=== PATIENT | male | born 1950 | race Caucasian/White ===

== ENCOUNTER 2021-12-07 10:07 | Outpatient (REF) | payer OTHER, SELFPAY | END 2021-12-07 10:08 | disposition home or self-care (01) | LOC: HO.BBR 10:07 | PROVIDERS: Visit Provider Hospitalist | DX: Z13.89 Encounter for screening for other disorder (principal) ==

== ENCOUNTER 2021-12-15 09:48 | Outpatient (REF) | payer OTHER, SELFPAY | END 2021-12-15 09:49 | disposition home or self-care (01) | LOC: HO.BBR 09:48 | PROVIDERS: Visit Provider Hospitalist | DX: Z13.89 Encounter for screening for other disorder (principal) ==

== ENCOUNTER 2021-12-22 11:00 | Outpatient (REF) | payer OTHER, SELFPAY | END 2021-12-22 11:01 | disposition home or self-care (01) | LOC: HO.BBR 11:00 | PROVIDERS: Visit Provider Hospitalist | DX: Z13.89 Encounter for screening for other disorder (principal) ==

== ENCOUNTER 2021-12-29 09:59 | Outpatient (REF) | payer OTHER, SELFPAY | END 2021-12-29 10:00 | disposition home or self-care (01) | LOC: HO.BBR 09:59 | PROVIDERS: Visit Provider Hospitalist | DX: Z13.89 Encounter for screening for other disorder (principal) ==

== ENCOUNTER 2022-01-05 09:56 | Outpatient (REF) | payer OTHER, SELFPAY | END 2022-01-05 09:57 | disposition home or self-care (01) | LOC: HO.BBR 09:56 | PROVIDERS: Visit Provider Hospitalist | DX: Z13.89 Encounter for screening for other disorder (principal) ==

== ENCOUNTER 2022-01-11 09:51 | Outpatient (REF) | payer OTHER, SELFPAY | END 2022-01-11 09:52 | disposition home or self-care (01) | LOC: HO.BBR 09:51 | PROVIDERS: Visit Provider Hospitalist | DX: Z13.89 Encounter for screening for other disorder (principal) ==

== ENCOUNTER 2022-01-19 10:05 | Outpatient (REF) | payer OTHER, SELFPAY | END 2022-01-19 10:06 | disposition home or self-care (01) | LOC: HO.BBR 10:05 | PROVIDERS: Visit Provider Hospitalist | DX: Z13.89 Encounter for screening for other disorder (principal) ==

== ENCOUNTER 2022-01-26 10:56 | Outpatient (REF) | payer OTHER, SELFPAY | END 2022-01-26 10:57 | disposition home or self-care (01) | LOC: HO.BBR 10:56 | PROVIDERS: Visit Provider Hospitalist | DX: Z13.89 Encounter for screening for other disorder (principal) ==

== ENCOUNTER 2022-02-02 10:51 | Outpatient (REF) | payer OTHER, SELFPAY | END 2022-02-02 10:52 | disposition home or self-care (01) | LOC: HO.BBR 10:51 | PROVIDERS: Visit Provider Hospitalist | DX: Z13.89 Encounter for screening for other disorder (principal) ==

== ENCOUNTER 2022-02-09 09:52 | Outpatient (REF) | payer OTHER, SELFPAY | END 2022-02-09 09:53 | disposition home or self-care (01) | LOC: HO.BBR 09:52 | PROVIDERS: Visit Provider Hospitalist | DX: Z13.89 Encounter for screening for other disorder (principal) ==

== ENCOUNTER 2022-02-16 09:52 | Outpatient (REF) | payer OTHER, SELFPAY | END 2022-02-16 09:53 | disposition home or self-care (01) | LOC: HO.BBR 09:52 | PROVIDERS: Visit Provider Hospitalist | DX: Z13.89 Encounter for screening for other disorder (principal) ==

== ENCOUNTER 2022-02-23 09:51 | Outpatient (REF) | payer OTHER, SELFPAY | END 2022-02-23 09:52 | disposition home or self-care (01) | LOC: HO.BBR 09:51 | PROVIDERS: Visit Provider Hospitalist | DX: Z13.89 Encounter for screening for other disorder (principal) ==

== ENCOUNTER 2022-03-02 09:59 | Outpatient (REF) | payer OTHER, SELFPAY | END 2022-03-02 10:00 | disposition home or self-care (01) | LOC: HO.BBR 09:59 | PROVIDERS: Visit Provider Hospitalist | DX: Z13.89 Encounter for screening for other disorder (principal) ==

== ENCOUNTER 2022-03-09 10:59 | Outpatient (REF) | payer OTHER, SELFPAY | END 2022-03-09 11:00 | disposition home or self-care (01) | LOC: HO.BBR 10:59 | PROVIDERS: Visit Provider Hospitalist | DX: Z13.89 Encounter for screening for other disorder (principal) ==

== ENCOUNTER 2022-03-30 09:56 | Outpatient (REF) | payer OTHER, SELFPAY | END 2022-03-30 09:57 | disposition home or self-care (01) | LOC: HO.BBR 09:56 | PROVIDERS: Visit Provider Hospitalist | DX: Z13.89 Encounter for screening for other disorder (principal) ==

== ENCOUNTER 2022-04-20 09:51 | Outpatient (REF) | payer OTHER, SELFPAY | END 2022-04-20 09:52 | disposition home or self-care (01) | LOC: HO.BBR 09:51 | PROVIDERS: Visit Provider Hospitalist | DX: Z13.89 Encounter for screening for other disorder (principal) ==

== ENCOUNTER 2022-05-11 10:52 | Outpatient (REF) | payer OTHER, SELFPAY | END 2022-05-11 10:53 | disposition home or self-care (01) | LOC: HO.BBR 10:52 | PROVIDERS: Visit Provider Hospitalist | DX: Z13.89 Encounter for screening for other disorder (principal) ==

== ENCOUNTER 2022-06-01 10:05 | Outpatient (REF) | payer OTHER, SELFPAY | END 2022-06-01 10:06 | disposition home or self-care (01) | LOC: HO.BBR 10:05 | PROVIDERS: Visit Provider Hospitalist | DX: Z13.89 Encounter for screening for other disorder (principal) ==

== ENCOUNTER 2022-06-22 10:00 | Outpatient (REF) | payer OTHER, SELFPAY | END 2022-06-22 10:01 | disposition home or self-care (01) | LOC: HO.BBR 10:00 | PROVIDERS: Visit Provider Hospitalist | DX: Z13.89 Encounter for screening for other disorder (principal) ==

== ENCOUNTER 2022-07-13 09:57 | Outpatient (REF) | payer OTHER, SELFPAY | END 2022-07-13 09:58 | disposition home or self-care (01) | LOC: HO.BBR 09:57 | PROVIDERS: Visit Provider Hospitalist | DX: Z13.89 Encounter for screening for other disorder (principal) ==

== ENCOUNTER 2022-08-03 09:47 | Outpatient (REF) | payer OTHER, SELFPAY | END 2022-08-03 09:48 | disposition home or self-care (01) | LOC: HO.BBR 09:47 | PROVIDERS: Visit Provider Hospitalist | DX: Z13.89 Encounter for screening for other disorder (principal) ==

== ENCOUNTER 2022-08-24 09:50 | Outpatient (REF) | payer OTHER, SELFPAY | END 2022-08-24 09:51 | disposition home or self-care (01) | LOC: HO.BBR 09:50 | PROVIDERS: Visit Provider Hospitalist | DX: Z13.89 Encounter for screening for other disorder (principal) ==

== ENCOUNTER 2022-09-14 09:51 | Outpatient (REF) | payer OTHER, SELFPAY | END 2022-09-14 09:52 | disposition home or self-care (01) | LOC: HO.BBR 09:51 | PROVIDERS: Visit Provider Hospitalist | DX: Z13.89 Encounter for screening for other disorder (principal) ==

== ENCOUNTER 2022-12-14 09:56 | Outpatient (REF) | payer OTHER, SELFPAY | END 2022-12-14 09:57 | disposition home or self-care (01) | LOC: HO.BBR 09:56 | PROVIDERS: Visit Provider Hospitalist | DX: Z13.89 Encounter for screening for other disorder (principal) ==

== ENCOUNTER 2023-03-15 09:54 | Outpatient (REF) | payer OTHER, MEDICARE, SELFPAY | END 2023-03-15 09:55 | disposition home or self-care (01) | LOC: HO.BBR 09:54 | PROVIDERS: Visit Provider Hospitalist | DX: Z13.89 Encounter for screening for other disorder (principal) ==

== ENCOUNTER 2023-06-14 09:59 | Outpatient (REF) | payer OTHER, MEDICARE, SELFPAY | END 2023-06-14 10:00 | disposition home or self-care (01) | LOC: HO.BBR 09:59 | PROVIDERS: Visit Provider Hospitalist | DX: Z13.89 Encounter for screening for other disorder (principal) ==

== ENCOUNTER 2023-07-05 09:57 | Outpatient (REF) | payer OTHER, SELFPAY | END 2023-07-05 09:58 | disposition home or self-care (01) | LOC: HO.BBR 09:57 | PROVIDERS: Visit Provider Hospitalist | DX: Z13.89 Encounter for screening for other disorder (principal) ==

== ENCOUNTER 2023-07-26 09:59 | Outpatient (REF) | payer OTHER, SELFPAY | END 2023-07-26 10:00 | disposition home or self-care (01) | LOC: HO.BBR 09:59 | PROVIDERS: Visit Provider Hospitalist | DX: Z13.89 Encounter for screening for other disorder (principal) ==

== ENCOUNTER 2023-08-16 09:53 | Outpatient (REF) | payer OTHER, SELFPAY | END 2023-08-16 09:54 | disposition home or self-care (01) | LOC: HO.BBR 09:53 | PROVIDERS: Visit Provider Hospitalist | DX: Z13.89 Encounter for screening for other disorder (principal) ==

== ENCOUNTER 2023-09-06 10:03 | Outpatient (REF) | payer OTHER, SELFPAY | END 2023-09-06 10:04 | disposition home or self-care (01) | LOC: HO.BBR 10:03 | PROVIDERS: Visit Provider Hospitalist | DX: Z13.89 Encounter for screening for other disorder (principal) ==

== ENCOUNTER 2024-02-21 09:50 | Outpatient (REF) | payer OTHER, SELFPAY ==
--- OUTSIDE RECORDS SUMMARY | 2024-02-21 09:53 | XMS_ITS ---
Author Name [facility] Organization Unknown History of Medication Use Medication Directions Dispensed Refills Start Date End Date Stat us atorvastatin (LIPITOR) 10 MG tablet Take 1 tablet (10 mg total) by mouth. 02/14/2024 02/18/9999 active tamsulosin (FLOMAX) 0.4 MG capsule Take by mouth. 02/14/2024 02/18/9999 active losartan (COZAAR) 100 MG tablet Take 1 tablet (100 mg total) by mouth. 02/14/2024 02/18/9999 active levothyroxine (SYNTHROID, LEVOTHROID) 125 MCG tablet TAKE 1 TABLET BY MOUTH SUNDAY THROUGH SUNDAY, THEN TAKE 2 TABLETS EVERY Sunday02/14/2024 02/18/9999 active Problems Problem Status Onset Date Problem Type Date of Resoluti on Source Elevated PSA active [facility] Incomplete bladder emptying active EncounterDiagnosisAct [facility] Family history of prostate cancer active EncounterDiagnosisAct [facility] CT Abnormal MRI, pelvis active [facility]DiagnosisAct [facility]
== END 2024-02-21 09:51 | disposition home or self-care (01) ==
LOC: HO.BBR 09:50
PROVIDERS: Visit Provider Hospitalist
DX: Z13.89 Encounter for screening for other disorder (principal)

== ENCOUNTER 2024-05-30 10:49 | Outpatient (REF) | payer OTHER, SELFPAY ==
--- OUTSIDE RECORDS SUMMARY | 2024-05-30 11:43 | XMS_ITS | Clinical Summary ---
Author Organization [facility] Address [address] [place] [address] Care Team Providers Care Skein Inspector Name Role Phone Claudio Lea MD Primary Care Provider +1- [phone] Allergies Active Allergy Reactions Criticality Noted Date Comments Lisinopril 09/02/2019 Medications Medication Sig Dispensed Refills Start Date End Date Status losartan (COZAAR) 100 MG tablet Take 100 mg by mouth daily. 0 Active levothyroxine (SYNTHROID, LEVOXYL) tablet 125 mcg Take 125 mcg by mouth every morning on an empty stomach. 0 Active tamsulosin (FLOMAX) 0.4 MG CAPS Take 0.4 mg by mouth daily. 0 Active Active Problems No known active problems Family History Medical History Relation Name Comments Cancer Brother Cancer Father Relation Name Status Comments Brother Father Social History Tobacco Use Types Packs/Day Years Used Date Smoking Tobacco: Never Smokeless Tobacco: Never Alcohol Use Standard Drinks/Week Comments Yes 0 (1 standard drink = 0.6 oz pur e alcohol) Sex and Gender Information Value Date Recorded Sex Assigned at Not on file Gender Identity Not on file Sexual Orientation Not on file Last Filed Vital Signs Vital Sign Reading Time Taken Comments Blood Pressure 137/73 09/03/2019 10:07 AM EDT Pulse 71 09/03/2019 10:07 AM EDT Temperature 36.2 ??C (97.1 ??F) 09/03/2019 10:07 AM E DT Respiratory Rate - - Oxygen Saturation 99% 09/03/2019 10:07 AM EDT Inhaled Oxygen Concentration - - Weight 91.8 kg (202 lb 6.4 oz) 09/03/2019 10:07 AM EDT Height 182.9 cm (6') 09/03/2019 10:07 AM EDT Body Mass Index 27.45 09/03/2019 10:07 AM EDT Plan of Treatment Health Maintenance Due Date Last Done Comments Hepatitis C Screening 1950 COVID-19 Vaccine (#1) 06/15/1950 Depression Screening 1961 Preventative Health Evaluation 12/16/1967 DTap / Tdap / Td (1 - Tdap) 1968 Colon Cancer Screening (Colonoscopy) 1994 Shingrix-Zoster Vaccine (1 o f 2) 12/16/1999 Fall Risk Assessment 2014 Influenza Vaccine (#1) 2023 11/19/2018 RSV Adult > 60+ Yrs or (1 - 1-dose 75+ series) 2024 Pneumococcal Vaccine Completed 12/22/2015, 12/23/2014 Hepatitis B Vaccines Aged Out No long er eligible based on patient's age to complete this topic RSV Ped < 20 months Aged Out No longe r eligible based on patient's age to complete this topic Insurance Payer Benefit Plan / Group Subscriber ID Effective Dates Phone Address [facility] [id number] [address] [place] [address] [facility] Care Teams Skein Inspector Relationship Specialty Start Date End Date Claudio Lea MD [address] [place] [phone] PCP - General Internal Medicine 09/03/19
--- OUTSIDE RECORDS SUMMARY | 2024-05-30 11:43 | XMS_ITS | Encounter Summary ---
Author Organization [facility] Address [address] [place] [address] Care Team Providers Care Secondary School Teacher Name Role Phone Allyn Anderson MD Primary Care Provider +1- [phone] Encounter Details Date Type Department Care Team (Late st Contact Info) Description 11/23/2023 Scanned Document [facility] Urologic Surgery [address] [address] Allyn Anderson MD [address] [place] [address] Social History Tobacco Use Types Packs/Day Years Used Date Smoking Tobacco: Never Assessed Sex and Gender Information Value Date Recorded Sex Assigned at Male 02/10/2024 9:52 AM EST Gender Identity Male 02/10/2024 9:52 AM EST Sexual Orientation Heterosexual (straight) 02/09 9:52 AM EST documented as of this encounter Plan of Treatment Not on file documented as of this encounter Visit Diagnoses Not on filedocumented in this encounter Care Teams Secondary School Teacher Relationship Specialty Start Date End Date Allyn Anderson MD [address] [place] [address] PCP - General Internal Medicine 11/21/23 documented as of this encounter
--- OUTSIDE RECORDS SUMMARY | 2024-05-30 11:43 | XMS_ITS | Clinical Summary ---
Author Organization [facility] Address [address] [place] [address] Care Team Providers Care Investigation Division Captain Name Role Phone Allyn Anderson MD Primary Care Provider +1- [phone] Allergies Active Allergy Reactions Criticality Noted Date Comments Lisinopril Cough Low 06/19/2018 cough Medications Medication Sig Dispensed Refills Start Date End Date Status atorvastatin (LIPITOR) 10 MG tablet Take 1 tablet (10 mg total) by mouth. Active levothyroxine (SYNTHROID, LEVOTHROID) 125 MCG tablet TAKE 1 TABLET BY MOUTH SUNDAY THROUGH SUNDAY, THEN TAKE 2 TABLETS EVERY SUNDAY Active losartan (COZAAR) 100 MG tablet Take 1 tablet (100 mg total) by mouth. 02/19/2014 Active tamsulosin (FLOMAX) 0.4 MG capsule Take by mouth. Active Active Problems No known active problems Family History Medical History Relation Name Comments Cancer, Prostate Brother Prostate Problems Brother Cancer, Prostate Cousin Prostate Problems Cousin Cancer, Prostate Father Prostate Problems Father Cancer, Prostate Maternal Grandfather Prostate Problems Maternal Grandfather Cancer, Prostate Paternal Grandfather Prostate Problems Paternal Grandfather Relation Name Status Comments Brother Alive Cousin Alive Father Maternal Grandfather Paternal Grandfather Social History Tobacco Use Types Packs/Day Years Used Date Smoking Tobacco: Never Smokeless Tobacco: Never Tobacco Cessation:Counseling Given: Not Answered Alcohol Use Standard Drinks/Week Comments Not Currently 0 (1 standard drink = 0.6 oz pur e alcohol) Sex and Gender Information Value Date Recorded Sex Assigned at Male 02/10/2024 9:52 AM EST Gender Identity Male 02/10/2024 9:52 AM EST Sexual Orientation Heterosexual (straight) 02/09 9:52 AM EST Last Filed Vital Signs Vital Sign Reading Time Taken Comments Blood Pressure - - Pulse - - Temperature - - Respiratory Rate - - Oxygen Saturation - - Inhaled Oxygen Concentration - - Weight 93 kg (205 lb) 02/12/2024 9:33 AM EST PER PT Height 185.4 cm (6' 1 ) 02/12/2024 9:33 AM EST P ER PT Body Mass Index 27.05 02/12/2024 9:33 AM EST Plan of Treatment Health Maintenance Due Date Last Done Comments Hepatitis C Virus Screening 1950 DTaP/Tdap/Td Vaccines (1 - Tdap) 1968 Colonoscopy 1994 Pneumococcal Vaccines 50+ (1 of 1 - PCV) 12/16/1999 Zoster (Shingles) Vaccine (1 of 2) 12/16/1999 COVID-19 Vaccine ( - season) 2023 12/18/2022, 01/10/2021, 06/10/2020, Additional history exists RSV Vaccine 60 years and older and Patients (1 - 1-dose 75+ series) 2024 Influenza Vaccine Completed 10/26/2023, , 11/22/2021, Additional history exists Hepatitis B Vaccines Aged Out No long er eligible based on patient's age to complete this topic Insurance Payer Benefit Plan / Group Subscriber ID Effective Dates Phone Address [facility] [id number] [address] Care Teams Investigation Division Captain Relationship Specialty Start Date End Date Allyn Anderson MD [address] [place] [id number] PCP - General Internal Medicine 11/21/23
--- OUTSIDE RECORDS SUMMARY | 2024-05-30 11:43 | XMS_ITS | Encounter Summary ---
Author Organization [facility] Address [address] [place] [address] Care Team Providers Care Attorney Name Role Phone Allyn Anderson MD Primary Care Provider +1 [phone] Encounter Details Date Type Department Care Team (Late st Contact Info) Description 05/28/2024 2:16 PM EDT Hospital Encounter [facility] Radiation Oncology [address] [address] Arrived Social History Tobacco Use Types Packs/Day Years Used Date Smoking Tobacco: Never Smokeless Tobacco: Never Alcohol Use Standard Drinks/Week Comments Not Currently 0 (1 standard drink = 0.6 oz pur e alcohol) Sex and Gender Information Value Date Recorded Sex Assigned at Not on file Legal Sex Male 9:32 AM EDT Gender Identity Not on file Sexual Orientation Not on file Occupation Industry Job Start Date Job End Date Professor Not on file Not on file Not on file documented as of this encounter Plan of Treatment Not on file documented as of this encounter Visit Diagnoses Not on filedocumented in this encounter Care Teams Attorney Relationship Specialty Start Date End Date Allyn Anderson MD [address] [place] [address] PCP - General Internal Medicine 05/01/24 documented as of this encounter
--- OUTSIDE RECORDS SUMMARY | 2024-05-30 11:43 | XMS_ITS | Encounter Summary ---
Author Organization [facility] Address [address] [place] [address] Care Team Providers Care Hydrogen Braze Furnace Operator Name Role Phone Allyn Anderson MD Primary Care Provider +1- [phone] Encounter Details Date Type Department Care Team (Late st Contact Info) Description 11/23/2023 Scanned Document [facility] Urologic Surgery [address] [address] Allyn Anderson MD [address] [place] [address] Social History Tobacco Use Types Packs/Day Years [...] on filedocumented in this encounter Care Teams Hydrogen Braze Furnace Operator Relationship Specialty Start Date End Date Allyn Anderson MD [address] [place] [address] PCP - General Internal Medicine 11/21/23 documented as of this encounter
--- OUTSIDE RECORDS SUMMARY | 2024-05-30 11:44 | XMS_ITS | Encounter Summary ---
Author Organization [facility] Address [address] [place] [address] Care Team Providers Care Boat Garnisher Name Role Phone Allyn Anderson MD Primary Care Provider + [phone] Encounter Details Date Type Department Care Team (Latest Contact Info) Description 05/09/2024 Lab Requisition [facility] - Main Lab [address] [place] [address] Herve Desir MD [address] [phone] Other abnormal findings on microbiological examination of urine Social History Tobacco Use Types Packs/Day Years Used Date Smoking Tobacco: Never Smokeless Tobacco: Never Alcohol Use Standard Drinks/Week Comments Yes 0 (1 standard drink = 0.6 oz pur e alcohol) Sex and Gender Information Value Date Recorded Sex Assigned at Not on file Legal Sex Male 9:32 AM EDT Gender Identity Not on file Sexual Orientation Not on file documented as of this encounter Plan of Treatment Not on file documented as of this encounter Procedures Procedure Name Priority Date/Time Associated Diagnosis Comments CULTURE URINE Routine 05/09/2024 11:25 AM EDT Other abnormal findings on microbiological examination of urine documented in this encounter Results * Culture urine (05/09/2024 11:25 AM EDT) Culture, Urine <10,000 CFU/mL gram negative bacilli, insignificant count, no further workup 05/10/2024 2:53 PM EDT [facility] H[facility] LAB Urine Urine specimen obtained by clean catch procedure / Unknown 05/09/2024 11:25 AM EDT 05/09/2024 5:52 PM EDT us Herve Desir MD LAB MICROBIOLOGY - GENERAL ORDER CEE Final Result [facility] [address] [place] [address], documented in this encounter Visit Diagnoses Diagnosis Other abnormal findings on microbiological examination of urine documented in this encounter Care Teams Boat Garnisher Relationship Specialty Start Date End Date Allyn Anderson MD [address] [place] [address] PCP - General Internal Medicine 05/01/24 documented as of this encounter
--- OUTSIDE RECORDS SUMMARY | 2024-05-30 11:44 | XMS_ITS | Encounter Summary ---
Author Organization [facility] Address [address] [place] [address] Care Team Providers Care Stock Roller Name Role Phone Allyn Anderson MD Primary Care Provider + [phone] Reason for Referral * Consultation (Routine) - Authorized Specialty Diagnoses / Procedures Referred By Contac t Referred To Contact Radiation Oncology Diagnoses Prostate cancer (CMS/HCC V24, CMS/HCC V28) Herve Desir MD [address] [address] Phone: tel: fax: [facility] Radiation Oncology [address] [place] [phone] Phone: tel: fax: Referral ID Status Reason Start Date Expiration Date Visits Requested Visits Authorized [id number] Authorized Specialty Services Required 05/01/2024 05/01/2025 1 1 Reason for Visit * Reason Comments Consult * Consultation (Routine) - Authorized Specialty Diagnoses / Procedures Referred By Contac t Referred To Contact Radiation Oncology Diagnoses Prostate cancer (CMS/HCC V24, CMS/HCC V28) Herve Desir MD [address] [address] Phone: tel: fax: [facility] Radiation Oncology [address] [place] [phone] Phone: tel: fax: Referral ID Status Reason Start Date Expiration Date Visits Requested Visits Authorized [id number] Authorized Specialty Services Required 05/01/2024 05/01/2025 1 1 Encounter Details Date Type Department Care Team (Latest Contact Info) Description 05/28/2024 2:17 PM EDT Hospital Encounter [facility] Radiation Oncology [address] [phone] Madisyn Ramirez MD [address] [place] [address] Prostate cancer (CMS/HCC V24, CMS/HCC V28) Social History Tobacco Use Types Packs/Day Years [...] on file documented as of this encounter Last Filed Vital Signs Vital Sign Reading Time Taken Comments Blood Pressure 178/82 05/28/2024 2:23 PM EDT manual blood pressure Pulse 62 05/28/2024 2:23 PM EDT Temperature 36.6 ??C (97.9 ??F) 05/28/2024 2 :23 PM EDT Respiratory Rate 16 05/28/2024 2:23 PM EDT Oxygen Saturation 97% 05/28/2024 2:2 3 PM EDT Inhaled Oxygen Concentration - - Weight 98 kg (216 lb) 05/28/2024 2:23 PM EDT Height 185.4 cm (6' 1 ) 05/28/2024 2:23 PM EDT Body Mass Index 28.5 05/28/2024 2:23 PM EDT documented in this encounter Plan of Treatment Scheduled Referrals Name Type Priority Associated Diagnoses Order Schedule Ambulatory referral to Radiation Oncology Outpatient Referral Routine Prostate cancer ([facility] V24, [facility] V28) Once for 1 Occurrences starting 05/28/2024 until 05/28/2024 documented as of this encounter Visit Diagnoses Diagnosis Prostate cancer (CMS/HCC V24, [facility] V28) Malignant neoplasm of prostate documented in this encounter Historical Medications * This list may reflect changes made after this encounter. atorvastatin (LIPITOR) 10 mg tablet Take 1 tablet (10 mg total) by mouth 1 (one) time each day. cholecalciferol (VITAMIN D-3) 1,250 mcg (50,000 unit) capsule Take 1 capsule (50,000 Units total) by mouth. 07/05/2023 levothyroxine (SYNTHROID, LEVOTHROID) 125 mcg tablet TAKE 1 TABLET BY MOUTH SUNDAY THROUGH SUNDAY, THEN TAKE 2 TABLETS EVERY SUNDAY losartan (COZAAR) 100 mg tablet Take 1 tablet (100 mg total) by mouth 1 (one) time each day. tamsulosin (FLOMAX) 0.4 mg 24 hr capsule Take 1 capsule (0.4 mg total) by mouth 1 (one) time each day. added in this encounter Care Teams Stock Roller Relationship Specialty Start Date End Date Allyn Anderson MD [address] [place] [phone] PCP - General Internal Medicine 05/01/24 documented as of this encounter
--- OUTSIDE RECORDS SUMMARY | 2024-05-30 11:44 | XMS_ITS | Encounter Summary ---
Author Organization [facility] Address [address] [place] [address] Care Team Providers Care High School Library Media Specialist Name Role Phone Allyn Anderson MD Primary Care Provider + [phone] Encounter Details Date Type Department Care Team (Late st Contact Info) Description 03/03/2024 Lab Requisition [facility] - Main Lab [address] [facility] [place] [address] Eryn Watkins MD [address] [address] Elevated prostate specific antigen (PSA) Social History Tobacco Use Types Packs/Day Years [...] Procedure Name Priority Date/Time Associated Diagnosis Comments FLUOROQUINOLONE RESISTANT GNR IDENTIFICATION AND SUSCEPTIBILITY Routine 03/03/2024 12:00 AM EST Elevated prostate specific antigen (PSA) CULTURE FLUOROQUINOLONE RESISTANT ORGANISM Routine 03/03/2024 12:00 AM EST Elevated prostate specific antigen (PSA) documented in this encounter Results * Fluoroquinolone resistant GNR identification and susceptibility (03/03/2024 12:00 AM EST) Result 1 No Fluoroquinolone Resistant GNR Detected. 03/07/2024 10:05 AM EST [facility] Swab Rectum structure / Unknown 03/03/2024 03/03/2024 10:26 AM EST Narrative [facility] - 03/07/2024 10:05 AM EST Performed at: ??01 - [facility] [address] ??[id number] Crane Man: Sun Bliss MD, Phone: ??[phone] Eryn Watkins MD LAB MICROBIOLOGY - GENER AL ORDERABLES Final Result [facility] * Culture fluoroquinolone resistant organism (03/03/2024 12:00 AM EST) Fluoroquinolone Resist GNR Cul Final report 03/07/2024 10:05 AM EST [facility] Swab Rectum structure / Unknown 03/03/2024 03/03/2024 10:26 AM EST Narrative [facility] - 03/07/2024 10:05 AM EST Performed at: ??01 - [facility] [address] ??[id number] Crane Man: Sun Bliss MD, Phone: ??[phone] Eryn Watkins MD LAB MICROBIOLOGY - GENER AL ORDERABLES Final Result [facility] documented in this encounter Visit Diagnoses Diagnosis Elevated prostate specific antigen (PSA) documented in this encounter Care Teams High School Library Media Specialist Relationship Specialty Start Date End Date Allyn Anderson MD [address] [place] [phone] PCP - General Internal Medicine 05/01/24 documented as of this encounter
--- OUTSIDE RECORDS SUMMARY | 2024-05-30 11:44 | XMS_ITS | Encounter Summary ---
Author Organization [facility] Address [address] [place] [address] Care Team Providers Care Valet Parking Attendant Name Role Phone Allyn Anderson MD Primary Care Provider +1- [phone] Encounter Details Date Type Department Care Team (Late st Contact Info) Description 11/23/2023 Scanned Document [facility] Urologic Surgery [address] [address] Allyn Anderson MD [address] [place] [address] Social History Tobacco Use Types Packs/Day Years [...] on filedocumented in this encounter Care Teams Valet Parking Attendant Relationship Specialty Start Date End Date Allyn Anderson MD [address] [place] [address] PCP - General Internal Medicine 11/21/23 documented as of this encounter
--- OUTSIDE RECORDS SUMMARY | 2024-05-30 11:44 | XMS_ITS | Clinical Summary ---
Author Organization Patient Business Ser [facility] Address [address] [place] [address] Care Team Providers Care Wafer Abrading Machine Tender Name Role Phone Allyn Anderson MD Primary Care Provider [phone] [phone] Allergies Active Allergy Reactions Criticality Noted Date Comments Lisinopril Cough Low 06/19/2018 cough Medications tamsulosin (FLOMAX) 0.4 mg 24 hr capsule Take 1 capsule (0.4 mg total) by mouth 1 (one) time each day. Active losartan (COZAAR) 100 mg tablet Take 1 tablet (100 mg total) by mouth 1 (one) time each day. Active levothyroxine (SYNTHROID, LEVOTHROID) 125 mcg tablet TAKE 1 TABLET BY MOUTH SUNDAY THROUGH SUNDAY, THEN TAKE 2 TABLETS EVERY SUNDAY Active cholecalciferol (VITAMIN D-3) 1,250 mcg (50,000 unit) capsule Take 1 capsule (50,000 Units total) by mouth. 07/05/2023 Active atorvastatin (LIPITOR) 10 mg tablet Take 1 tablet (10 mg total) by mouth 1 (one) time each day. Active Active Problems Problem Noted Date Diagnosed Date Prostate cancer (CMS/HCC V24, CMS/HCC V28) 05/28 Cancer Staging:Clinical:Stage IIC(cT1c, cN0, cM0, PSA: 19.9, Grade Group: 4) - Signed by Madisyn Ramirez MD on 05/28/2024 Dysthymia 05/23/2024 Elevated ferritin level 05/23/2024 Hemochromatosis 05/23/2024 Hypercholesterolemia 05/23/2024 Low HDL (under 40) 05/23/2024 Macrocytosis without anemia 05/23/2024 Vaccine counseling 05/23/2024 Vitamin D deficiency 05/23/2024 Elevated PSA 12/20/2020 Overview (05/23/2024): 4.9 11/2020. Referred to urology. Overweight (BMI 25.0-29.9) 08/27/2019 Polycythemia 08/03/2019 Overview (05/23/2024): 07/2019, negative JAK2 testing, p vera highly unlikely. No further workup per heme note 08/2019 BPH with elevated PSA 06/19/2018 Hypertension 06/19/2018 Hypothyroidism 06/19/2018 Overview (05/23/2024): Hashimotos thyroiditis Osteoarthritis 06/19/2018 Overview (05/23/2024): Neck, low back, right knee, left foot Encounters Date Type Department Care Team Description 05/28/2024 2:17 PM EDT Hospital Encounter [facility] Radiation Oncology [address] [address] Madisyn Ramirez MD Prostate cancer (CMS/HCC V24, CMS/HCC V28) 05/28/2024 2:16 PM EDT Hospital Encounter [facility] Radiation Oncology [address] [place] [phone] Arrived 05/22/2024 Telephone [facility] Radiation Oncology [address] [address] Carmita Andrew MA 05/14/2024 11:10 AM EDT - 05/14/2024 11:59 PM EDT Hospital Encounter [facility] PET Scan [address] [place] [address] Malignant neoplasm of prostate (CMS/HCC V24, CMS/HCC V28) Discharge Disposition: Home or Self Care 05/09/2024 Lab Requisition [facility] - Main Lab [address] [facility] [place] [address] Herve Desir MD Other abnormal findings on microbiological examination of urine 05/01/2024 Telephone [facility] Radiation Oncology [address] [facility] 2nd [place] [address] [place] 03/03/2024 Lab Requisition [facility] - Main Lab [address] [facility] [place] [address] Eryn Watkins MD Elevated prostate specific antigen (PSA) from Last 3 Months Surgical History Surgery Date Site/Laterality Comments KNEE SURGERY Right PROCEDURE: HISTORICAL KNEE SURGERY; COMMENT: meniscal surgery 2014- didnt help OTHER SURGICAL HISTORY PROCEDURE: ---- OTHER ----; COMMENT: skin cyst 2016 CYST REMOVAL neck Medical History Medical History Date Comments Hypertension Raquel's disease Hypothyroidism Hemochromatosis Arthritis Family History Medical History Relation Name Comments Prostate cancer Brother low marco antonio score Asthma Daughter 1 No Known Problems Daughter 2 Prostate cancer Father dx age -75yo , thyroid disease Prostate cancer Maternal Grandfather Arthritis Mother glioblastoma Mother Prostate cancer Paternal Grandfather No Known Problems Son 1 No Known Problems Son 2 Relation Name Status Comments Brother Alive Daughter 1 Alive Daughter 2 Alive Father Maternal Grandfather Mother Paternal Grandfather Son 1 Alive Son 2 Alive Social History Tobacco Use Types Packs/Day Years [...] file Not on file Not on file Obstetrics History Last Filed Vital Signs Vital Sign Reading [...] Mass Index 28.5 05/28/2024 2:23 PM EDT Plan of Treatment Health Maintenance Due Date Last Done Comments Zoster Vaccines (1 of 2) 1968 RSV Immunization Adult Patients (1 - Risk 60-74 years 1-dose series) 2009 Cholesterol Screening (Lipid Panel) 09/18/2019 Colorectal Cancer Screening: Stool Based Tests (FOBT/FIT) 09/18/2019 Depression Screening 09/18/2019 Falls Risk Assessment 09/18/2019 Hepatitis C Screening 09/18/2019 Social Influencers of Health Screening 09/18/2019 Hypertension/CHF/CAD Annual BMP Blood Test 01/29/2022 DTaP,Tdap,and Td Vaccines (2 - Td or Tdap) 12/07/2030 12/07/2020 Pneumococcal Vaccine: 50+ Years Completed 06/26/2022, 12/22/2015, 12/23/2014 COVID-19 Vaccine Completed 10/26/2023, , 06/26/2022, Additional history exists Influenza Vaccine Completed 10/26/2023, , 11/22/2021, Additional history exists HIB Vaccines Aged Out No longer eligi ble based on patient's age to complete this topic HPV Vaccines Aged Out No longer eligi ble based on patient's age to complete this topic Hepatitis A Vaccines Aged Out No long er eligible based on patient's age to complete this topic Hepatitis B Vaccines Aged Out No long er eligible based on patient's age to complete this topic IPV Vaccines Aged Out No longer eligi ble based on patient's age to complete this topic MMR Vaccines Aged Out No longer eligi ble based on patient's age to complete this topic Meningococcal ACWY Vaccine Aged Out N o longer eligible based on patient's age to complete this topic Meningococcal B Vaccine Aged Out No l onger eligible based on patient's age to complete this topic RSV Immunization Patients Under 20 months Aged Out No longer eligible based on patient's age to complete this topic Varicella Vaccines Aged Out No longer eligible based on patient's age to complete this topic Procedures Procedure Name Priority Date/Time Associated Diagnosis Comments PET CT SKULL TO MID THIGH INITIAL Routine 05/14/2024 1:15 PM EDT Malignant neoplasm of prostate ([facility] V24, [facility] V28) CULTURE URINE Routine 05/09/2024 11:25 AM EDT Other abnormal findings on microbiological examination of urine FLUOROQUINOLONE RESISTANT GNR IDENTIFICATION AND SUSCEPTIBILITY Routine 03/03/2024 12:00 AM EST Elevated prostate specific antigen (PSA) CULTURE FLUOROQUINOLONE RESISTANT ORGANISM Routine 03/03/2024 12:00 AM EST Elevated prostate specific antigen (PSA) from Last 3 Months Results * PET CT Skull to Mid Thigh Initial (05/14/2024 1:15 PM EDT) Anatomical Region Laterality Modality Body Radiographic Sudha ging 05/15/2024 8:19 AM EDT Impressions 05/15/2024 12:43 PM EDT 1. ??Activity within the prostate gland in keeping with prostate carcinoma 2. ??No PSMA findings to suggest metastatic disease -------- FINAL REPORT -------- Dictated By: Yesenia Pérez Dictated Date: 05/15/2024 08:19 ET Assigned Physician: Yesenia Pérez Reviewed and Electronically Signed By: Yesenia Pérez Signed Date: 05/15/2024 12:43 ET Workstation ID: [id number] Transcribed By: Self Edit Transcribed Date: 05/15/2024 08:47 ET Narrative 05/15/2024 12:43 PM EDT HISTORY: Prostate carcinoma, initial treatment. PRIOR IMAGING STUDIES: Outside MRI of the prostate October [address] of the abdomen and pelvis. ??Staging. RADIOPHARMACEUTICAL: 9.1 mCi F-18 piflufolastat IV INJECTION SITE: Left antecubital INJECTION TIME TO SCAN TIME: 72 min PROCEDURE: Routine body PET-CT imaging performed from the head to the upper thighs and reconstructed in axial, coronal, sagittal planes at the computer workstation with fused data from both the PET imaging study and attenuation correction CT study. Please note, CT imaging utilized strictly for attenuation correction and anatomic localization: CT not designed to produce and cannot replace vqduh-ao-cdo-art true diagnostic CT examination with specific protocols. ??Standardized uptake values (SUV) normalized to patient body weight and indicate the highest active concentration (SUV max) in a given disease site. DLP: ??738 mGy-cm IMAGING FINDINGS: Reference Values SUV Max: Parotid: 24.9 Blood Pool: ??1.9 Liver: ??8.0 Expected pattern of physiological activity noted. HEAD AND NECK: No abnormal activity. THORAX: Nonspecific bihilar activity SUV max 2.5 on the left and 2.6 on the right. ABDOMEN/PELVIS: Enlarged prostate gland SUV max 6.1. MUSCULOSKELETAL: No abnormal activity. Procedure Note Yesenia Pérez MD - 05/15/2024 HISTORY: Prostate carcinoma, initial treatment. PRIOR IMAGING STUDIES: Outside MRI of the prostate October 2023 [address] CTof the abdomen and pelvis. Staging. RADIOPHARMACEUTICAL: 9.1 mCi F-18 piflufolastat IV INJECTION SITE: Left antecubital INJECTION TIME TO SCAN TIME: 72 min PROCEDURE: Routine body PET-CT imaging performed from the head to the upper thighsand reconstructed in axial, coronal, sagittal planes at the computerworkstation with fused data from both the PET imaging study andattenuation correction CT study. Please note, CT imaging utilized strictlyfor attenuation correction and anatomic localization: CT not designed toproduce and cannot replace kdlew-hp-kve-art true diagnostic CT examinationwith specific protocols. Standardized uptake values (SUV) normalized topatient body weight and indicate the highest active concentration (SUVmax) in a given disease site. DLP: 738 mGy-cm IMAGING FINDINGS: Reference Values SUV Max: Parotid: 24.9 Blood Pool: 1.9 Liver: 8.0 Expected pattern of physiological activity noted. HEAD AND NECK: No abnormal activity. THORAX: Nonspecific bihilar activity SUV max 2.5 on the left and 2.6 onthe right. ABDOMEN/PELVIS: Enlarged prostate gland SUV max 6.1. MUSCULOSKELETAL: No abnormal activity. IMPRESSION: 1. Activity within the prostate gland in keeping with prostatecarcinoma 2. No PSMA findings to suggest metastatic disease -------- FINAL REPORT -------- Dictated By: Yesenia Pérez Dictated Date: 05/15/2024 08:19 ET Assigned Physician: Yesenia Pérez Reviewed and Electronically Signed By: Yesenia Pérez Signed Date: 05/15/2024 12:43 ET Workstation ID: [id number] Transcribed By: Self Edit Transcribed Date: 05/15/2024 08:47 ET Herve Desir MD IMG NM PROCEDURES Final Result * Culture urine (05/09/2024 11:25 AM EDT) Culture, Urine <10,000 CFU/mL gram negative bacilli, insignificant count, no further workup 05/10/2024 2:53 PM EDT [facility] Urine Urine specimen obtained by clean catch procedure / Unknown 05/09/2024 11:25 AM EDT 05/09/2024 5:52 PM EDT Herve Desir MD LAB MICROBIOLOGY - GENERAL ORDER CEE Final Result [facility] [address] [place] [address], [place] [phone] * Fluoroquinolone resistant GNR identification and susceptibility (03/03/2024 12:00 AM EST) Result 1 No Fluoroquinolone Resistant GNR Detected. 03/07/2024 10:05 AM EST [facility] Swab Rectum structure / Unknown 03/03/2024 03/03/2024 10:26 AM EST Narrative [facility] - 03/07/2024 10:05 AM EST Performed at: ??01 - [facility] [address] ??[id number] Dry Cans Operator: Sun Bliss MD, Phone: ??[phone] Eryn Watkins MD LAB MICROBIOLOGY - GENER AL ORDERABLES Final Result [facility] * Culture fluoroquinolone resistant organism (03/03/2024 12:00 AM EST) Fluoroquinolone Resist GNR Cul Final report 03/07/2024 10:05 AM EST [facility] Swab Rectum structure / Unknown 03/03/2024 03/03/2024 10:26 AM EST Narrative [facility] - 03/07/2024 10:05 AM EST Performed at: ??01 - [facility] [address] ??[id number] Dry Cans Operator: Sun Bliss MD, Phone: ??[phone] us Eryn Watkins MD LAB MICROBIOLOGY - GENER AL ORDERABLES Final Result [facility] from Last 3 Months Insurance MEDICARE [facility] Care Teams Wafer Abrading Machine Tender Relationship Specialty Start Date End Date Allyn Anderson MD [address] [facility] [place] [address] PCP - General Internal Medicine 05/01/24
--- OUTSIDE RECORDS SUMMARY | 2024-05-30 11:44 | XMS_ITS | Encounter Summary ---
Author Organization [facility] Address [address] [place] [address] Care Team Providers Care Paint Grinder Stone Mill Name Role Phone Allyn Anderson MD Primary Care Provider [phone]- [phone] Encounter Details Date Type Department Care Team ([facility] st Contact Info) Description 02/14/2024 Scanned Document [facility] UROLOGY SCAN Urology, Scan Social History Tobacco Use Types Packs/Day Years [...] on filedocumented in this encounter Care Teams Paint Grinder Stone Mill Relationship Specialty Start Date End Date Allyn Anderson MD [address] [place] [address] PCP - General Internal Medicine 11/21/23 documented as of this encounter
== END 2024-05-30 10:50 | disposition home or self-care (01) ==
LOC: HO.BBR 10:49
PROVIDERS: Visit Provider Hospitalist
DX: Z13.89 Encounter for screening for other disorder (principal)

== ENCOUNTER 2024-08-28 09:55 | Outpatient (REF) | payer OTHER, SELFPAY ==
--- OUTSIDE RECORDS SUMMARY | 2024-08-28 10:30 | XMS_ITS | Clinical Summary ---
Author Organization [facility] Address [address] [place] [address] Care Team Providers Care Taste Tester Name Role Phone Allyn Anderson MD Primary Care Provider [phone]- [phone] Allergies Active Allergy Reactions Criticality Noted Date Comments Lisinopril Cough Low 06/19/2018 cough Medications atorvastatin (LIPITOR) 10 MG tablet Take 1 [...] Assigned at Male 02/10/2024 9:52 AM EST Legal Sex Male 1:03 PM EDT Gender Identity Male 02/10/2024 9:52 AM EST [...] Vaccine (1 of 2) 12/16/1999 COVID-19 Vaccine (5 - season) 2023 12/18/2022, 01/10/2021, 06/10/2020, Additional history exists Influenza Vaccine 09/19/2024 10/26/2023, , 11/22/2021, Additional history exists RSV Vaccine 60 years and older and Patients (1 - 1-dose 75+ series) 2024 Hepatitis B Vaccines Aged Out No long er eligible based on patient's age to complete this topic Insurance [facility] Care Teams Taste Tester Relationship Specialty Start Date End Date Allyn Anderson MD [address] [place] [address] PCP - General Internal Medicine 11/21/23
--- OUTSIDE RECORDS SUMMARY | 2024-08-28 10:31 | XMS_ITS | Encounter Summary ---
Author Organization [facility] Address [address] [place] [address] Care Team Providers Care Balance Wheel Screw Hole Tapper Name Role Phone Allyn Anderson MD Primary Care Provider + [phone] Encounter Details Date Type Department Care Team (Latest Contact Info) Description 05/09/2024 Lab Requisition [facility] Lab [address] [facility] [place] [address] Herve Desir MD [address] [address] Other abnormal findings on microbiological examination of urine Social History Tobacco Use Types Packs/Day Years Used Date Smoking Tobacco: Never Smokeless Tobacco: Never Alcohol Use Standard Drinks/Week Comments Yes 0 (1 standard drink = 0.6 oz pur e alcohol) Sex and Gender Information Value Date Recorded Sex Assigned at Male 06/25/2024 4:06 PM EDT Legal Sex Male 9:32 AM EDT Gender Identity Not on file Sexual Orientation Straight 07/01/2024 8: 43 AM EDT documented as of this encounter Plan of Treatment Upcoming Encounters Date Type Department Care Team (Latest Contact Info) Description 09/26/2024 8:30 AM EDT Hospital Encounter [facility] Main OR [address] [place] [address] Herve Desir MD [address] [address] 09/26/2024 8:30 AM EDT - 09/26/2024 10:[address] [facility] Main OR [address] [place] [phone] Herve Desir MD [address] [phone] TRANSPERINEAL PLACEMENT OF GOLD SEEDS &SPACEOAR [47562 (CPT ) +1 more] 10/07/2024 8:[address] [facility] Radiation Oncology [address] [place] [phone] 10/07/2024 9:[address] [facility] Radiation Oncology [address] [place] [phone] Ally Acosta MD [address] [place] [address] Scheduled Procedures Name Priority Associated Diagnoses Date/Ti me INSERTION FIDUCIAL MARKERS Malignant neoplasm of prostate ([facility] V24, [facility] V28) 09/26/2024 8:30 AM EDT documented as of this encounter Procedures Procedure Name Priority Date/Time Associated Diagnosis Comments CULTURE URINE Routine 05/09/2024 11:25 AM EDT Other abnormal findings on microbiological examination of urine documented in this encounter Results * Culture urine (05/09/2024 11:25 AM EDT) Culture, Urine <10,000 CFU/mL gram negative bacilli, insignificant count, no further workup 05/10/2024 2:53 PM EDT [facility] Urine Urine specimen obtained by clean catch procedure / Unknown 05/09/2024 11:25 AM EDT 05/09/2024 5:52 PM EDT us Herve Desir MD LAB MICROBIOLOGY - GENERAL ORDER CEE Final Result [facility] [address] [place], [place] [address] [phone] documented in this encounter Visit Diagnoses Diagnosis Other abnormal findings on microbiological examination of urine Malignant neoplasm of prostate ([facility] V24, [facility] V28) Malignant neoplasm of prostate documented in this encounter Care Teams Balance Wheel Screw Hole Tapper Relationship Specialty Start Date End Date Allyn Anderson MD [address] [place] [address] PCP - General Internal Medicine 05/01/24 documented as of this encounter
--- OUTSIDE RECORDS SUMMARY | 2024-08-28 10:31 | XMS_ITS | Clinical Summary ---
Author Organization [facility] Address [address] [place] [address] Care Team Providers Care Director Of Assisted Living Name Role Phone Claudio Lea MD Primary Care Provider +1- [phone] Allergies Active Allergy Reactions Criticality Noted Date [...] 71 09/03/2019 10:07 AM EDT Temperature 36.2 C (97.1 F) 09/03/2019 10:07 AM EDT Respiratory Rate - - Oxygen Saturation 99% [...] Fall Risk Assessment 2014 Influenza Vaccine (#1) 2024 11/19/2018 RSV Adult > 60+ Yrs or [...] Group Subscriber ID Effective Dates Phone Address [facility] [id number] 2017-Zahra t [address] [facility] [address] [place] [address] HMO Care Teams Director Of Assisted Living Relationship Specialty Start Date End Date Claudio Lea MD [address] [place] [phone] PCP - General Internal Medicine 09/03/19
--- OUTSIDE RECORDS SUMMARY | 2024-08-28 10:31 | XMS_ITS ---
Author Name [facility] Organization Unknown History of Medication Use Medication Directions Dispensed Refills Start Date End Date Stat us losartan (COZAAR) 100 MG tablet Take 1 tablet (100 mg total) by mouth. 02/19/2014 active atorvastatin (LIPITOR) 10 MG tablet Take 1 tablet (10 mg total) by mouth. active tamsulosin (FLOMAX) 0.4 MG capsule Take by mouth. active Allergies Allergen Reaction Severity Comment Documented Date Source Statu s LISINOPRIL COUGH cough 06/19/2018 [facility] active Problems Problem Status Onset Date Problem Type Date of Resoluti on Source Abnormal MRI, pelvis active EncounterDiagnosisAct CCT Family history of prostate cancer active EncounterDiagnosisAct [facility] CT Incomplete bladder [facility]ying [facility] Ele[facility] PSA [facility] Encounters Encounter Type Encounter Reason Primary Diagnosis Location Date Ambulatory [facility] 02/18/2024 Ambulatory Elevated prostate specific antigen (PSA) Elevated prostate specific antigen (PSA) [employer] 02/12/2024 Care Team Organization Name Specialty Phone Email Start Date End [facility] 02/16/202405/07 [facility] JUAN MORENO Primary Care 11/22/2023
== END 2024-08-28 09:56 | disposition home or self-care (01) ==
LOC: HO.BBR 09:55
PROVIDERS: Visit Provider Hospitalist
DX: Z13.89 Encounter for screening for other disorder (principal)

== ENCOUNTER 2025-01-01 14:08 | Outpatient (REF) | payer OTHER, SELFPAY ==
--- OUTSIDE RECORDS SUMMARY | 2025-01-01 17:31 | XMS_ITS | Clinical Summary ---
Author Organization Patient Business Ser [facility] Address [address] [place] [address] Care Team Providers Care Salvage Winder And Inspector Name Role Phone Allyn Anderson MD Primary Care Provider [phone] Allergies Active Allergy Reactions Criticality Noted Date Comments Lisinopril Cough Low 06/19/2018 cough Medications losartan (COZAAR) 100 mg tablet Take 1 tablet (100 mg total) by mouth 1 (one) time each day. Active levothyroxine (SYNTHROID, LEVOTHROID) 125 mcg tablet TAKE 1 TABLET BY MOUTH SUNDAY THROUGH SUNDAY, THEN TAKE 2 TABLETS EVERY SUNDAY Active cholecalciferol (VITAMIN D-3) 1,250 mcg (50,000 unit) capsule Take 1 capsule (50,000 Units total) by mouth. 4 Active atorvastatin (LIPITOR) 10 mg tablet Take 1 tablet (10 mg total) by mouth 1 (one) time each day. Active calcium carbonate (TUMS) 500 mg (200 mg elemental calcium) chewable tablet Chew 1 tablet (500 mg total). Active calcium carbonate 1,500 mg (600 mg elemental calcium) tablet Take 1 tablet (1,500 mg total) by mouth 1 (one) time each day. Active simethicone (MYLICON) 125 mg chewable tablet Chew 1 tablet (125 mg total) 2 (two) times a day. Active tamsulosin (FLOMAX) 0.4 mg 24 hr capsule Take 1 capsule (0.4 mg total) by mouth 1 (one) time each day with breakfast. Capsules should be taken 30 minutes following the same meal each day. Active Active Problems Problem Noted Date Diagnosed Date Benign prostatic hyperplasia with lower urinary tract symptoms 07/01/2024 Prostate cancer (CMS/HCC V24, CMS/HCC V28) 05/28 [...] Encounters Date Type Department Care Team Description 12/24/2024 1:56 PM EST - 12/24/2024 11:59 PM EST Hospital Encounter [facility]iation [facility] [address] [place] [phone] Annemarie Wilson NP Prostate cancer (CMS/HCC V24, CMS/HCC V28) (Primary Dx) Discharge Disposition: Home or Self Care 12/24/2024 Telephone [facility] [address] [place] [phone] Armida Blanco RN 12/02/2024 9:10 AM EDT - 12/02/2024 11:59 PM EDT Hospital Encounter [facility] [address] [place] [phone] Annemarie Wilson NP Prostate cancer (CMS/HCC V24, CMS/HCC V28) (Primary Dx) Discharge Disposition: Home or Self Care 12/02/2024 8:58 AM EDT - 12/02/2024 11:59 PM EDT Hospital Encounter [facility]iation [facility] [address] [place] [phone] Discharge Disposition: Home or Self Care 12/01/2024 8:53 AM EDT - 12/01/2024 11:59 PM EDT Hospital Encounter [facility] [address] [place] [phone] Discharge Disposition: Home or Self Care 11/28/2024 9:10 AM EDT - 11/28/2024 11:59 PM EDT Hospital Encounter [facility] [address] [place] [phone] Jesus Salinas MD Prostate cancer (CMS/HCC V24, CMS/HCC V28) (Primary Dx) Discharge Disposition: Home or Self Care 11/28/2024 8:56 AM EDT - 11/28/2024 11:59 PM EDT Hospital Encounter [facility] [address] [place] [phone] Discharge Disposition: Home or Self Care 11/27/2024 8:57 AM EDT - 11/27/2024 11:59 PM EDT Hospital Encounter [facility] [address] [place] [phone] Discharge Disposition: Home or Self Care 11/26/2024 8:55 AM EDT - 11/26/2024 11:59 PM EDT Hospital Encounter [facility] [address] [place] [phone] Discharge Disposition: Home or Self Care 11/25/2024 8:55 AM EDT - 11/25/2024 11:59 PM EDT Hospital Encounter [facility] [address] [place] [phone] Discharge Disposition: Home or Self Care 11/24/2024 8:57 AM EDT - 11/24/2024 11:59 PM EDT Hospital Encounter [facility] [address] [place] [phone] Discharge Disposition: Home or Self Care 11/21/2024 9:08 AM EDT - 11/21/2024 11:59 PM EDT Hospital Encounter [facility] [address] [place] [phone] Jesus Salinas MD Prostate cancer (CMS/HCC V24, CMS/HCC V28) (Primary Dx) Discharge Disposition: Home or Self Care 11/21/2024 8:55 AM EDT - 11/21/2024 11:59 PM EDT Hospital Encounter [facility] [address] [place] [phone] Discharge Disposition: Home or Self Care 11/20/2024 8:57 AM EDT - 11/20/2024 11:59 PM EDT Hospital Encounter [facility] [address] [place] [phone] Discharge Disposition: Home or Self Care 11/19/2024 9:00 AM EDT - 11/19/2024 11:59 PM EDT Hospital Encounter [facility] [address] [place] [phone] Discharge Disposition: Home or Self Care 11/18/2024 8:59 AM EDT - 11/18/2024 11:59 PM EDT Hospital Encounter [facility] [address] [place] [phone] Discharge Disposition: Home or Self Care 11/17/2024 8:57 AM EDT - 11/17/2024 11:59 PM EDT Hospital Encounter [facility] [address] [place] [phone] Discharge Disposition: Home or Self Care 11/14/2024 9:08 AM EDT - 11/14/2024 11:59 PM EDT Hospital Encounter [facility] [address] [place] [phone] Jesus Salinas MD Prostate cancer (CMS/HCC V24, CMS/HCC V28) (Primary Dx) Discharge Disposition: Home or Self Care 11/14/2024 8:54 AM EDT - 11/14/2024 11:59 PM EDT Hospital Encounter [facility] [address] [place] [phone] Discharge Disposition: Home or Self Care 11/13/2024 9:00 AM EDT - 11/13/2024 11:59 PM EDT Hospital Encounter [facility] [address] [place] [phone] Discharge Disposition: Home or Self Care 11/11/2024 8:55 AM EDT - 11/11/2024 11:59 PM EDT Hospital Encounter [facility] [address] [place] [phone] Discharge Disposition: Home or Self Care 11/10/2024 8:54 AM EDT - 11/10/2024 11:59 PM EDT Hospital Encounter [facility] [address] [place] [phone] Discharge Disposition: Home or Self Care 11/07/2024 9:10 AM EDT - 11/07/2024 11:59 PM EDT Hospital Encounter [facility] [address] [place] [phone] Ally Acosta MD Prostate cancer (CMS/HCC V24, CMS/HCC V28) (Primary Dx) Discharge Disposition: Home or Self Care 11/07/2024 8:53 AM EDT - 11/07/2024 11:59 PM EDT Hospital Encounter [facility] [address] [place] [phone] Discharge Disposition: Home or Self Care 11/06/2024 8:51 AM EDT - 11/06/2024 11:59 PM EDT Hospital Encounter [facility] [address] [place] [phone] Discharge Disposition: Home or Self Care 11/05/2024 9:05 AM EDT - 11/05/2024 11:59 PM EDT Hospital Encounter [facility] [address] [place] [phone] Ally Acosta MD Prostate cancer (CMS/HCC V24, CMS/HCC V28) (Primary Dx) Discharge Disposition: Home or Self Care 11/05/2024 8:55 AM EDT - 11/05/2024 11:59 PM EDT Hospital Encounter [facility] [address] [place] [phone] Discharge Disposition: Home or Self Care 11/04/2024 8:52 AM EDT - 11/04/2024 11:59 PM EDT Hospital Encounter [facility] [address] [place] [phone] Discharge Disposition: Home or Self Care 11/03/2024 8:56 AM EDT - 11/03/2024 11:59 PM EDT Hospital Encounter [facility] [address] [place] [phone] Discharge Disposition: Home or Self Care 10/31/2024 9:06 AM EDT - 10/31/2024 11:59 PM EDT Hospital Encounter [facility] [address] [place] [phone] Ally Acosta MD Prostate cancer (CMS/HCC V24, CMS/HCC V28) (Primary Dx) Discharge Disposition: Home or Self Care 10/31/2024 8:53 AM EDT - 10/31/2024 11:59 PM EDT Hospital Encounter [facility] [address] [place] [phone] Discharge Disposition: Home or Self Care 10/30/2024 8:57 AM EDT - 10/30/2024 11:59 PM EDT Hospital Encounter [facility] [address] [place] [phone] Discharge Disposition: Home or Self Care 10/29/2024 8:50 AM EDT - 10/29/2024 11:59 PM EDT Hospital Encounter [facility] [address] [place] [phone] Discharge Disposition: Home or Self Care 10/28/2024 8:54 AM EDT - 10/28/2024 11:59 PM EDT Hospital Encounter [facility] [address] [place] [phone] Discharge Disposition: Home or Self Care 10/27/2024 8:55 AM EDT - 10/27/2024 11:59 PM EDT Hospital Encounter [facility] [address] [place] [phone] Discharge Disposition: Home or Self Care 10/24/2024 9:08 AM EDT - 10/24/2024 11:59 PM EDT Hospital Encounter [facility] [address] [place] [phone] Ally Acosta MD Prostate cancer (CMS/HCC V24, CMS/HCC V28) (Primary Dx) Discharge Disposition: Home or Self Care 10/24/2024 8:55 AM EDT - 10/24/2024 11:59 PM EDT Hospital Encounter [facility] [address] [place] [phone] Discharge Disposition: Home or Self Care 10/23/2024 11:45 AM EDT - 10/23/2024 11:59 PM EDT Hospital Encounter [facility] [address] [place] [phone] Ally Acosta MD Discharge Disposition: Home or Self Care 10/23/2024 11:12 AM EDT - 10/23/2024 11:59 PM EDT Hospital Encounter [facility] [address] [place] [phone] Discharge Disposition: Home or Self Care 10/14/2024 7:59 AM EDT - 10/14/2024 11:59 PM EDT Hospital Encounter [facility] [address] [place] [phone] Discharge Disposition: Home or Self Care 10/07/2024 10:50 AM EDT - 10/07/2024 11:59 PM EDT Hospital Encounter [facility] [address] [place] [phone] Ally Acosta MD [place] [place] [facility] [place] Discharge Disposition: Home or Self Care 10/07/2024 9:55 AM EDT - 10/07/2024 11:59 PM EDT Hospital Encounter [facility] [address] [place] [phone] Prostate cancer [place] [place] [facility] [place] (Primary Dx) Discharge Disposition: Home or Self Care 10/02/2024 Telephone [facility] [address] [place] [phone] Allyn Johnson RN from Last 3 Months Surgical History Surgery Date Site/Laterality Comments KNEE SURGERY Right PROCEDURE: HISTORICAL KNEE SURGERY; COMMENT: meniscal surgery 2014- didnt help OTHER SURGICAL HISTORY PROCEDURE: ---- OTHER ----; COMMENT: skin cyst 2016 CYST REMOVAL neck MENISCECTOMY Medical History Medical History Date Comments Hypertension Raquel's disease Hypothyroidism Hemochromatosis Arthritis Hyperlipidemia Joint pain Cancer ([facility] [place], [facility] [place] Family History Medical History Relation Name Comments [...] drink = 0.6 oz pur e alcohol) Interpersonal Safety Answer Date Record ed Physical Abuse Unrecognized value 07/01/2024 Verbal Abuse Unrecognized value 07/01/2024 Sex and Gender Information Value Date Recorded Sex Assigned at Male 06/25/2024 4:06 PM EDT Legal Sex Male 9:32 AM EDT Gender Identity Not on file Sexual Orientation Straight 07/01/2024 8: 43 AM EDT Occupation Industry Job Start Date Job End Date Professor Not on file Not on file Not on file Obstetrics History Last Filed Vital Signs Vital Sign Reading Time Taken Comments Blood Pressure 120/88 12/24/2024 2:01 PM EST Pulse 148 12/24/2024 2:01 PM EST Temperature 36.6 C (97.8 F) 12/24/2024 2:01 PM EST Respiratory Rate 18 12/24/2024 2:01 PM EST Oxygen Saturation 97% 12/24/2024 2:01 PM EST Inhaled Oxygen Concentration - - Weight 98 kg (216 lb) 12/24/2024 2:01 PM EST Height 185.4 cm (6' 1 ) 12/24/2024 2:01 PM EST Body Mass Index 28.5 12/24/2024 2:01 PM EST Plan of Treatment Health Maintenance Due Date Last Done Comments Zoster Vaccines (1 of 2) 1969 Cholesterol Screening (Lipid Panel) 09/18/2019 Colorectal Cancer Screening: Stool Based Tests (FOBT/FIT) 09/18/2019 Hepatitis C Screening 09/18/2019 Social Influencers of Health Screening 09/18/2019 Depression Screening 02/20/2024 COVID-19 Vaccine ( season) 2024 10/26/2023, 12/18/2022, 06/26/2022, Additional history exists Falls Risk Assessment 07/01/2025 07/01/2024 Hypertension/CHF/CAD Annual BMP Blood Test 07/01/2025 07/01/2024 DTaP,Tdap,and Td Vaccines (2 - Td or Tdap) 12/07/2030 12/07/2020 Pneumococcal Vaccine: 50+ Years Completed 06/26/2022, 12/22/2015, 12/23/2014 Influenza Vaccine Completed 10/08/2024, , 12/18/2022, Additional history exists RSV Immunization Adult Patients Completed 10/08/2024 HIB Vaccines Aged Out No longer eligi [...] on patient's age to complete this topic Medical Devices Implanted Type Area Low Voltage Electrician Device Identifier Shelf Expiration Date Model / Serial / Lot Marker Fiducial 20cm Soft Tissue Gold - Sna - [id number] Implanted:Qty: 1 on 09/26/2024 by Herve Desir MD at [facility] Imaging Implants N/A: Prostate [employer] 06/16/2028 [id number] / NA / [id number] [employer] - Sn/A - [id number] Implanted:Qty: 1 on 09/26/2024 by Herve Desir MD at [facility] Implants N/A: Perianal [address] [employer] 05/07/2026 [id number] / N/A / [id number] Procedures Procedure Name Priority Date/Time Associated Diagnosis Comments RAD ONC MSQ TREATMENT SUMMARY Routine 12/02/2024 9:14 AM EDT RAD ONC MSQ TREATMENT SUMMARY Routine 12/01/2024 9:14 AM EDT RAD ONC MSQ TREATMENT SUMMARY Routine 11/28/2024 9:11 AM EDT RAD ONC MSQ TREATMENT SUMMARY Routine 11/27/2024 9:09 AM EDT RAD ONC MSQ TREATMENT SUMMARY Routine 11/26/2024 9:16 AM EDT RAD ONC MSQ TREATMENT SUMMARY Routine 11/25/2024 9:10 AM EDT RAD ONC MSQ TREATMENT SUMMARY Routine 11/24/2024 9:12 AM EDT RAD ONC MSQ TREATMENT SUMMARY Routine 11/21/2024 9:08 AM EDT RAD ONC MSQ TREATMENT SUMMARY Routine 11/20/2024 9:18 AM EDT RAD ONC MSQ TREATMENT SUMMARY Routine 11/19/2024 9:16 AM EDT RAD ONC MSQ TREATMENT SUMMARY Routine 11/18/2024 9:13 AM EDT RAD ONC MSQ TREATMENT SUMMARY Routine 11/17/2024 9:13 AM EDT RAD ONC MSQ TREATMENT SUMMARY Routine 11/14/2024 9:08 AM EDT RAD ONC MSQ TREATMENT SUMMARY Routine 11/13/2024 9:28 AM EDT RAD ONC MSQ TREATMENT SUMMARY Routine 11/11/2024 9:11 AM EDT RAD ONC MSQ TREATMENT SUMMARY Routine 11/10/2024 9:09 AM EDT RAD ONC MSQ TREATMENT SUMMARY Routine 11/07/2024 9:10 AM EDT RAD ONC MSQ TREATMENT SUMMARY Routine 11/06/2024 9:16 AM EDT RAD ONC MSQ TREATMENT SUMMARY Routine 11/05/2024 9:09 AM EDT RAD ONC MSQ TREATMENT SUMMARY Routine 11/04/2024 9:10 AM EDT RAD ONC MSQ TREATMENT SUMMARY Routine 11/03/2024 9:07 AM EDT RAD ONC MSQ TREATMENT SUMMARY Routine 10/31/2024 9:05 AM EDT RAD ONC MSQ TREATMENT SUMMARY Routine 10/30/2024 9:07 AM EDT RAD ONC MSQ TREATMENT SUMMARY Routine 10/29/2024 9:11 AM EDT RAD ONC MSQ TREATMENT SUMMARY Routine 10/28/2024 9:09 AM EDT RAD ONC MSQ TREATMENT SUMMARY Routine 10/27/2024 9:06 AM EDT RAD ONC MSQ TREATMENT SUMMARY Routine 10/24/2024 9:08 AM EDT RAD ONC MSQ TREATMENT SUMMARY Routine 10/23/2024 11:45 AM EDT BASIC METABOLIC PANEL Routine 07/01/2024 8:04 AM EDT from Last 3 Months or Most Recently Relevant to Health Maintenance Results * Rad Onc Msq Treatment Summary (12/02/2024 9:14 AM EDT) Treatment Site prostate & nodes MOSAIQ RADIATION ONCOLOGY Course Number 1 MOSAIQ RADIATION ONCOLOGY Prescribed Fractional Dose 250 cGray MOSAIQ RADIATION ONCOLOGY Prescribed Total Dose 7,000 cGray MOSAIQ RADIATION ONCOLOGY Actual Fractions Delivered 28 MOSAIQ RADIATION ONCOLOGY Actual Session Delivered Dose 250 cGray MOSAIQ RADIATION ONCOLOGY Actual Total Dose 7,000 cGray MOSAIQ RADIATION ONCOLOGY Prescribed Technique 3 ARC VMAT MOSAIQ RADIATION ONCOLOGY Elapsed Days 40 MOSAIQ RADIATION ONCOLOGY Start Date 10/23/2024 MOSAIQ RADIATION ONCOLOGY Last Date 12/02/2024 MOSAIQ RADIATION ONCOLOGY Prescribed Number of Fractions 28 MOSAIQ RADIATION ONCOLOGY 12/02/2024 9:14 AM EDT Physician Radiation Oncology RADIATION ONCOLO GY ORDERABLES Final Result MOSAIQ RADIATION ONCOLOGY * Rad Onc Msq Treatment Summary (12/01/2024 9:14 AM EDT) Treatment Site prostate & nodes MOSAIQ RADIATION ONCOLOGY Course Number 1 MOSAIQ RADIATION ONCOLOGY Prescribed Fractional Dose 250 cGray MOSAIQ RADIATION ONCOLOGY Prescribed Total Dose 7,000 cGray MOSAIQ RADIATION ONCOLOGY Actual Fractions Delivered 27 MOSAIQ RADIATION ONCOLOGY Actual Session Delivered Dose 250 cGray MOSAIQ RADIATION ONCOLOGY Actual Total Dose 6,750 cGray MOSAIQ RADIATION ONCOLOGY Prescribed Technique 3 ARC VMAT MOSAIQ RADIATION ONCOLOGY Elapsed Days 39 MOSAIQ RADIATION ONCOLOGY Start Date 10/23/2024 MOSAIQ RADIATION ONCOLOGY Last Date 12/01/2024 MOSAIQ RADIATION ONCOLOGY Prescribed Number of Fractions 28 MOSAIQ RADIATION ONCOLOGY 12/01/2024 9:14 AM EDT Physician Radiation Oncology RADIATION ONCJENNY GY ORDERABLES Final Result MOSAIQ RADIATION ONCOLOGY * Rad Onc Msq Treatment Summary (11/28/2024 9:11 AM EDT) Treatment Site prostate & nodes MOSAIQ RADIATION ONCOLOGY Course Number 1 MOSAIQ RADIATION ONCOLOGY Prescribed Fractional Dose 250 cGray MOSAIQ RADIATION ONCOLOGY Prescribed Total Dose 7,000 cGray MOSAIQ RADIATION ONCOLOGY Actual Fractions Delivered 26 MOSAIQ RADIATION ONCOLOGY Actual Session Delivered Dose 250 cGray MOSAIQ RADIATION ONCOLOGY Actual Total Dose 6,500 cGray MOSAIQ RADIATION ONCOLOGY Prescribed Technique 3 ARC VMAT MOSAIQ RADIATION ONCOLOGY Elapsed Days 36 MOSAIQ RADIATION ONCOLOGY Start Date 10/23/2024 MOSAIQ RADIATION ONCOLOGY Last Date 11/28/2024 MOSAIQ RADIATION ONCOLOGY Prescribed Number of Fractions 28 MOSAIQ RADIATION ONCOLOGY 11/28/2024 9:11 AM EDT Physician Radiation Oncology RADIATION ONCJENNY GY ORDERABLES Final Result MOSAIQ RADIATION ONCOLOGY * Rad Onc Msq Treatment Summary (11/27/2024 9:09 AM EDT) Treatment Site prostate & nodes MOSAIQ RADIATION ONCOLOGY Course Number 1 MOSAIQ RADIATION ONCOLOGY Prescribed Fractional Dose 250 cGray MOSAIQ RADIATION ONCOLOGY Prescribed Total Dose 7,000 cGray MOSAIQ RADIATION ONCOLOGY Actual Fractions Delivered 25 MOSAIQ RADIATION ONCOLOGY Actual Session Delivered Dose 250 cGray MOSAIQ RADIATION ONCOLOGY Actual Total Dose 6,250 cGray MOSAIQ RADIATION ONCOLOGY Prescribed Technique 3 ARC VMAT MOSAIQ RADIATION ONCOLOGY Elapsed Days 35 MOSAIQ RADIATION ONCOLOGY Start Date 10/23/2024 MOSAIQ RADIATION ONCOLOGY Last Date 11/27/2024 MOSAIQ RADIATION ONCOLOGY Prescribed Number of Fractions 28 MOSAIQ RADIATION ONCOLOGY 11/27/2024 9:09 AM EDT Physician Radiation Oncology RADIATION ONCOLO GY ORDERABLES Final Result MOSAIQ RADIATION ONCOLOGY * Rad Onc Msq Treatment Summary (11/26/2024 9:16 AM EDT) Treatment Site prostate & nodes MOSAIQ RADIATION ONCOLOGY Course Number 1 MOSAIQ RADIATION ONCOLOGY Prescribed Fractional Dose 250 cGray MOSAIQ RADIATION ONCOLOGY Prescribed Total Dose 7,000 cGray MOSAIQ RADIATION ONCOLOGY Actual Fractions Delivered 24 MOSAIQ RADIATION ONCOLOGY Actual Session Delivered Dose 250 cGray MOSAIQ RADIATION ONCOLOGY Actual Total Dose 6,000 cGray MOSAIQ RADIATION ONCOLOGY Prescribed Technique 3 ARC VMAT MOSAIQ RADIATION ONCOLOGY Elapsed Days 34 MOSAIQ RADIATION ONCOLOGY Start Date 10/23/2024 MOSAIQ RADIATION ONCOLOGY Last Date 11/26/2024 MOSAIQ RADIATION ONCOLOGY Prescribed Number of Fractions 28 MOSAIQ RADIATION ONCOLOGY 11/26/2024 9:16 AM EDT Physician Radiation Oncology RADIATION ONCOLO GY ORDERABLES Final Result MOSAIQ RADIATION ONCOLOGY * Rad Onc Msq Treatment Summary (11/25/2024 9:10 AM EDT) Treatment Site prostate & nodes MOSAIQ RADIATION ONCOLOGY Course Number 1 MOSAIQ RADIATION ONCOLOGY Prescribed Fractional Dose 250 cGray MOSAIQ RADIATION ONCOLOGY Prescribed Total Dose 7,000 cGray MOSAIQ RADIATION ONCOLOGY Actual Fractions Delivered 23 MOSAIQ RADIATION ONCOLOGY Actual Session Delivered Dose 250 cGray MOSAIQ RADIATION ONCOLOGY Actual Total Dose 5,750 cGray MOSAIQ RADIATION ONCOLOGY Prescribed Technique 3 ARC VMAT MOSAIQ RADIATION ONCOLOGY Elapsed Days 33 MOSAIQ RADIATION ONCOLOGY Start Date 10/23/2024 MOSAIQ RADIATION ONCOLOGY Last Date 11/25/2024 MOSAIQ RADIATION ONCOLOGY Prescribed Number of Fractions 28 MOSAIQ RADIATION ONCOLOGY 11/25/2024 9:10 AM EDT Physician Radiation Oncology RADIATION ONCOLO GY ORDERABLES Final Result MOSAIQ RADIATION ONCOLOGY * Rad Onc Msq Treatment Summary (11/24/2024 9:12 AM EDT) Treatment Site prostate & nodes MOSAIQ RADIATION ONCOLOGY Course Number 1 MOSAIQ RADIATION ONCOLOGY Prescribed Fractional Dose 250 cGray MOSAIQ RADIATION ONCOLOGY Prescribed Total Dose 7,000 cGray MOSAIQ RADIATION ONCOLOGY Actual Fractions Delivered 22 MOSAIQ RADIATION ONCOLOGY Actual Session Delivered Dose 250 cGray MOSAIQ RADIATION ONCOLOGY Actual Total Dose 5,500 cGray MOSAIQ RADIATION ONCOLOGY Prescribed Technique 3 ARC VMAT MOSAIQ RADIATION ONCOLOGY Elapsed Days 32 MOSAIQ RADIATION ONCOLOGY Start Date 10/23/2024 MOSAIQ RADIATION ONCOLOGY Last Date 11/24/2024 MOSAIQ RADIATION ONCOLOGY Prescribed Number of Fractions 28 MOSAIQ RADIATION ONCOLOGY 11/24/2024 9:12 AM EDT Physician Radiation Oncology RADIATION ONCOLO GY ORDERABLES Final Result Performing Organization Address City/[facility]/ZIP Co de Phone Number MOSAIQ RADIATION ONCOLOGY * Rad Onc Msq Treatment Summary (11/21/2024 9:08 AM EDT) Treatment Site prostate & nodes MOSAIQ RADIATION ONCOLOGY Course Number 1 MOSAIQ RADIATION ONCOLOGY Prescribed Fractional Dose 250 cGray MOSAIQ RADIATION ONCOLOGY Prescribed Total Dose 7,000 cGray MOSAIQ RADIATION ONCOLOGY Actual Fractions Delivered 21 MOSAIQ RADIATION ONCOLOGY Actual Session Delivered Dose 250 cGray MOSAIQ RADIATION ONCOLOGY Actual Total Dose 5,250 cGray MOSAIQ RADIATION ONCOLOGY Prescribed Technique 3 ARC VMAT MOSAIQ RADIATION ONCOLOGY Elapsed Days 29 MOSAIQ RADIATION ONCOLOGY Start Date 10/23/2024 MOSAIQ RADIATION ONCOLOGY Last Date 11/21/2024 MOSAIQ RADIATION ONCOLOGY Prescribed Number of Fractions 28 MOSAIQ RADIATION ONCOLOGY 11/21/2024 9:08 AM EDT Physician Radiation Oncology RADIATION ONCOLO GY ORDERABLES Final Result MOSAIQ RADIATION ONCOLOGY * Rad Onc Msq Treatment Summary (11/20/2024 9:18 AM EDT) Treatment Site prostate & nodes MOSAIQ RADIATION ONCOLOGY Course Number 1 MOSAIQ RADIATION ONCOLOGY Prescribed Fractional Dose 250 cGray MOSAIQ RADIATION ONCOLOGY Prescribed Total Dose 7,000 cGray MOSAIQ RADIATION ONCOLOGY Actual Fractions Delivered 20 MOSAIQ RADIATION ONCOLOGY Actual Session Delivered Dose 250 cGray MOSAIQ RADIATION ONCOLOGY Actual Total Dose 5,000 cGray MOSAIQ RADIATION ONCOLOGY Prescribed Technique 3 ARC VMAT MOSAIQ RADIATION ONCOLOGY Elapsed Days 28 MOSAIQ RADIATION ONCOLOGY Start Date 10/23/2024 MOSAIQ RADIATION ONCOLOGY Last Date 11/20/2024 MOSAIQ RADIATION ONCOLOGY Prescribed Number of Fractions 28 MOSAIQ RADIATION ONCOLOGY 11/20/2024 9:18 AM EDT Physician Radiation Oncology RADIATION ONCJENNY GY ORDERABLES Final Result MOSAIQ RADIATION ONCOLOGY * Rad Onc Msq Treatment Summary (11/19/2024 9:16 AM EDT) Treatment Site prostate & nodes MOSAIQ RADIATION ONCOLOGY Course Number 1 MOSAIQ RADIATION ONCOLOGY Prescribed Fractional Dose 250 cGray MOSAIQ RADIATION ONCOLOGY Prescribed Total Dose 7,000 cGray MOSAIQ RADIATION ONCOLOGY Actual Fractions Delivered 19 MOSAIQ RADIATION ONCOLOGY Actual Session Delivered Dose 250 cGray MOSAIQ RADIATION ONCOLOGY Actual Total Dose 4,750 cGray MOSAIQ RADIATION ONCOLOGY Prescribed Technique 3 ARC VMAT MOSAIQ RADIATION ONCOLOGY Elapsed Days 27 MOSAIQ RADIATION ONCOLOGY Start Date 10/23/2024 MOSAIQ RADIATION ONCOLOGY Last Date 11/19/2024 MOSAIQ RADIATION ONCOLOGY Prescribed Number of Fractions 28 MOSAIQ RADIATION ONCOLOGY 11/19/2024 9:16 AM EDT Physician Radiation Oncology RADIATION ONCJENNY GY ORDERABLES Final Result MOS[facility] RADIATION ONCOLOGY * Rad Onc Msq Treatment Summary (11/18/2024 9:13 AM EDT) Treatment Site prostate & nodes MOSAIQ RADIATION ONCOLOGY Course Number 1 MOSAIQ RADIATION ONCOLOGY Prescribed Fractional Dose 250 cGray MOSAIQ RADIATION ONCOLOGY Prescribed Total Dose 7,000 cGray MOSAIQ RADIATION ONCOLOGY Actual Fractions Delivered 18 MOS[facility]Q RADIATION ONCOLOGY Actual Session Delivered Dose 250 cGray MOSAIQ RADIATION ONCOLOGY Actual Total Dose 4,500 cGray MOSAIQ RADIATION ONCOLOGY Prescribed Technique 3 ARC VMAT MOSAIQ RADIATION ONCOLOGY Elapsed Days 26 MOSAIQ RADIATION ONCOLOGY Start Date 10/23/2024 MOSAIQ RADIATION ONCOLOGY Last Date 11/18/2024 MOS[facility] RADIATION ONCOLOGY Prescribed Number of Fractions 28 MOSAIQ RADIATION ONCOLOGY 11/18/2024 9:13 AM EDT Physician Radiation Oncology RADIATION ONCOLO GY ORDERABLES Final Result MOS[facility] RADIATION ONCOLOGY * Rad Onc Msq Treatment Summary (11/17/2024 9:13 AM EDT) Treatment Site prostate & nodes MOSAIQ RADIATION ONCOLOGY Course Number 1 MOSAIQ RADIATION ONCOLOGY Prescribed Fractional Dose 250 cGray MOSAIQ RADIATION ONCOLOGY Prescribed Total Dose 7,000 cGray MOSAIQ RADIATION ONCOLOGY Actual Fractions Delivered 17 MOSAIQ RADIATION ONCOLOGY Actual Session Delivered Dose 250 cGray MOSAIQ RADIATION ONCOLOGY Actual Total Dose 4,250 cGray MOSAIQ RADIATION ONCOLOGY Prescribed Technique 3 ARC VMAT MOSAIQ RADIATION ONCOLOGY Elapsed Days 25 MOSAIQ RADIATION ONCOLOGY Start Date 10/23/2024 MOSAIQ RADIATION ONCOLOGY Last Date 11/17/2024 MOSAIQ RADIATION ONCOLOGY Prescribed Number of Fractions 28 MOSAIQ RADIATION ONCOLOGY 11/17/2024 9:13 AM EDT Physician Radiation Oncology RADIATION ONCJENNY GY ORDERABLES Final Result Performing Organization Address City/[facility]/ZIP Co de Phone Number MOSAIQ RADIATION ONCOLOGY * Rad Onc Msq Treatment Summary (11/14/2024 9:08 AM EDT) Treatment Site prostate & nodes MOSAIQ RADIATION ONCOLOGY Course Number 1 MOSAIQ RADIATION ONCOLOGY Prescribed Fractional Dose 250 cGray MOSAIQ RADIATION ONCOLOGY Prescribed Total Dose 7,000 cGray MOSAIQ RADIATION ONCOLOGY Actual Fractions Delivered 16 MOSAIQ RADIATION ONCOLOGY Actual Session Delivered Dose 250 cGray MOSAIQ RADIATION ONCOLOGY Actual Total Dose 4,000 cGray MOSAIQ RADIATION ONCOLOGY Prescribed Technique 3 ARC VMAT MOSAIQ RADIATION ONCOLOGY Elapsed Days 22 MOSAIQ RADIATION ONCOLOGY Start Date 10/23/2024 MOSAIQ RADIATION ONCOLOGY Last Date 11/14/2024 MOSAIQ RADIATION ONCOLOGY Prescribed Number of Fractions 28 MOSAIQ RADIATION ONCOLOGY 11/14/2024 9:08 AM EDT us Physician Radiation Oncology RADIATION ONCOLO GY ORDERABLES Final Result MOSAIQ RADIATION ONCOLOGY * Rad Onc Msq Treatment Summary (11/13/2024 9:28 AM EDT) Treatment Site prostate & nodes MOSAIQ RADIATION ONCOLOGY Course Number 1 MOSAIQ RADIATION ONCOLOGY Prescribed Fractional Dose 250 cGray MOSAIQ RADIATION ONCOLOGY Prescribed Total Dose 7,000 cGray MOSAIQ RADIATION ONCOLOGY Actual Fractions Delivered 15 MOSAIQ RADIATION ONCOLOGY Actual Session Delivered Dose 250 cGray MOSAIQ RADIATION ONCOLOGY Actual Total Dose 3,750 cGray MOSAIQ RADIATION ONCOLOGY Prescribed Technique 3 ARC VMAT MOSAIQ RADIATION ONCOLOGY Elapsed Days 21 MOSAIQ RADIATION ONCOLOGY Start Date 10/23/2024 MOSAIQ RADIATION ONCOLOGY Last Date 11/13/2024 MOSAIQ RADIATION ONCOLOGY Prescribed Number of Fractions 28 MOSAIQ RADIATION ONCOLOGY 11/13/2024 9:28 AM EDT Physician Radiation Oncology RADIATION ONCOLO GY ORDERABLES Final Result MOSAIQ RADIATION ONCOLOGY * Rad Onc Msq Treatment Summary (11/11/2024 9:11 AM EDT) Treatment Site prostate & nodes MOSAIQ RADIATION ONCOLOGY Course Number 1 MOSAIQ RADIATION ONCOLOGY Prescribed Fractional Dose 250 cGray MOSAIQ RADIATION ONCOLOGY Prescribed Total Dose 7,000 cGray MOSAIQ RADIATION ONCOLOGY Actual Fractions Delivered 14 MOSAIQ RADIATION ONCOLOGY Actual Session Delivered Dose 250 cGray MOSAIQ RADIATION ONCOLOGY Actual Total Dose 3,500 cGray MOSAIQ RADIATION ONCOLOGY Prescribed Technique 3 ARC VMAT MOSAIQ RADIATION ONCOLOGY Elapsed Days 19 MOSAIQ RADIATION ONCOLOGY Start Date 10/23/2024 MOSAIQ RADIATION ONCOLOGY Last Date 11/11/2024 MOSAIQ RADIATION ONCOLOGY Prescribed Number of Fractions 28 MOSAIQ RADIATION ONCOLOGY 11/11/2024 9:11 AM EDT us Physician Radiation Oncology RADIATION ONCOLO GY ORDERABLES Final Result MOSAIQ RADIATION ONCOLOGY * Rad Onc Msq Treatment Summary (11/10/2024 9:09 AM EDT) Treatment Site prostate & nodes MOSAIQ RADIATION ONCOLOGY Course Number 1 MOSAIQ RADIATION ONCOLOGY Prescribed Fractional Dose 250 cGray MOSAIQ RADIATION ONCOLOGY Prescribed Total Dose 7,000 cGray MOSAIQ RADIATION ONCOLOGY Actual Fractions Delivered 13 MOSAIQ RADIATION ONCOLOGY Actual Session Delivered Dose 250 cGray MOSAIQ RADIATION ONCOLOGY Actual Total Dose 3,250 cGray MOSAIQ RADIATION ONCOLOGY Prescribed Technique 3 ARC VMAT MOSAIQ RADIATION ONCOLOGY Elapsed Days 18 MOSAIQ RADIATION ONCOLOGY Start Date 10/23/2024 MOSAIQ RADIATION ONCOLOGY Last Date 11/10/2024 MOSAIQ RADIATION ONCOLOGY Prescribed Number of Fractions 28 MOSAIQ RADIATION ONCOLOGY 11/10/2024 9:09 AM EDT Physician Radiation Oncology RADIATION ONCJENNY GY ORDERABLES Final Result Performing Organization Address City/[facility]/ZIP Co de Phone Number MOSAIQ RADIATION ONCOLOGY * Rad Onc Msq Treatment Summary (11/07/2024 9:10 AM EDT) Treatment Site prostate & nodes MOSAIQ RADIATION ONCOLOGY Course Number 1 MOSAIQ RADIATION ONCOLOGY Prescribed Fractional Dose 250 cGray MOSAIQ RADIATION ONCOLOGY Prescribed Total Dose 7,000 cGray MOSAIQ RADIATION ONCOLOGY Actual Fractions Delivered 12 MOSAIQ RADIATION ONCOLOGY Actual Session Delivered Dose 250 cGray MOSAIQ RADIATION ONCOLOGY Actual Total Dose 3,000 cGray MOSAIQ RADIATION ONCOLOGY Prescribed Technique 3 ARC VMAT MOSAIQ RADIATION ONCOLOGY Elapsed Days 15 MOSAIQ RADIATION ONCOLOGY Start Date 10/23/2024 MOSAIQ RADIATION ONCOLOGY Last Date 11/07/2024 MOSAIQ RADIATION ONCOLOGY Prescribed Number of Fractions 28 MOSAIQ RADIATION ONCOLOGY 11/07/2024 9:10 AM EDT Physician Radiation Oncology RADIATION ONCJENNY GY ORDERABLES Final Result MOSAIQ RADIATION ONCOLOGY * Rad Onc Msq Treatment Summary (11/06/2024 9:16 AM EDT) Treatment Site prostate & nodes MOSAIQ RADIATION ONCOLOGY Course Number 1 MOSAIQ RADIATION ONCOLOGY Prescribed Fractional Dose 250 cGray MOSAIQ RADIATION ONCOLOGY Prescribed Total Dose 7,000 cGray MOSAIQ RADIATION ONCOLOGY Actual Fractions Delivered 11 MOSAIQ RADIATION ONCOLOGY Actual Session Delivered Dose 250 cGray MOSAIQ RADIATION ONCOLOGY Actual Total Dose 2,750 cGray MOSAIQ RADIATION ONCOLOGY Prescribed Technique 3 ARC VMAT MOSAIQ RADIATION ONCOLOGY Elapsed Days 14 MOSAIQ RADIATION ONCOLOGY Start Date 10/23/2024 MOSAIQ RADIATION ONCOLOGY Last Date 11/06/2024 MOSAIQ RADIATION ONCOLOGY Prescribed Number of Fractions 28 MOSAIQ RADIATION ONCOLOGY 11/06/2024 9:16 AM EDT Physician Radiation Oncology RADIATION ONCJENNY GY ORDERABLES Final Result MOSAIQ RADIATION ONCOLOGY * Rad Onc Msq Treatment Summary (11/05/2024 9:09 AM EDT) Treatment Site prostate & nodes MOSAIQ RADIATION ONCOLOGY Course Number 1 MOSAIQ RADIATION ONCOLOGY Prescribed Fractional Dose 250 cGray MOSAIQ RADIATION ONCOLOGY Prescribed Total Dose 7,000 cGray MOSAIQ RADIATION ONCOLOGY Actual Fractions Delivered 10 MOSAIQ RADIATION ONCOLOGY Actual Session Delivered Dose 250 cGray MOSAIQ RADIATION ONCOLOGY Actual Total Dose 2,500 cGray MOSAIQ RADIATION ONCOLOGY Prescribed Technique 3 ARC VMAT MOSAIQ RADIATION ONCOLOGY Elapsed Days 13 MOSAIQ RADIATION ONCOLOGY Start Date 10/23/2024 MOSAIQ RADIATION ONCOLOGY Last Date 11/05/2024 MOSAIQ RADIATION ONCOLOGY Prescribed Number of Fractions 28 MOSAIQ RADIATION ONCOLOGY 11/05/2024 9:09 AM EDT Physician Radiation Oncology RADIATION ONCJENNY GY ORDERABLES Final Result MOSAIQ RADIATION ONCOLOGY * Rad Onc Msq Treatment Summary (11/04/2024 9:10 AM EDT) Treatment Site prostate & nodes MOSAIQ RADIATION ONCOLOGY Course Number 1 MOSAIQ RADIATION ONCOLOGY Prescribed Fractional Dose 250 cGray MOSAIQ RADIATION ONCOLOGY Prescribed Total Dose 7,000 cGray MOSAIQ RADIATION ONCOLOGY Actual Fractions Delivered 9 MOSAIQ RADIATION ONCOLOGY Actual Session Delivered Dose 250 cGray MOSAIQ RADIATION ONCOLOGY Actual Total Dose 2,250 cGray MOSAIQ RADIATION ONCOLOGY Prescribed Technique 3 ARC VMAT MOSAIQ RADIATION ONCOLOGY Elapsed Days 12 MOSAIQ RADIATION ONCOLOGY Start Date 10/23/2024 MOSAIQ RADIATION ONCOLOGY Last Date 11/04/2024 MOSAIQ RADIATION ONCOLOGY Prescribed Number of Fractions 28 MOSAIQ RADIATION ONCOLOGY 11/04/2024 9:10 AM EDT Physician Radiation Oncology RADIATION ONCJENNY GY ORDERABLES Final Result MOSAIQ RADIATION ONCOLOGY * Rad Onc Msq Treatment Summary (11/03/2024 9:07 AM EDT) Treatment Site prostate & nodes MOSAIQ RADIATION ONCOLOGY Course Number 1 MOSAIQ RADIATION ONCOLOGY Prescribed Fractional Dose 250 cGray MOSAIQ RADIATION ONCOLOGY Prescribed Total Dose 7,000 cGray MOSAIQ RADIATION ONCOLOGY Actual Fractions Delivered 8 MOSAIQ RADIATION ONCOLOGY Actual Session Delivered Dose 250 cGray MOSAIQ RADIATION ONCOLOGY Actual Total Dose 2,000 cGray MOSAIQ RADIATION ONCOLOGY Prescribed Technique 3 ARC VMAT MOSAIQ RADIATION ONCOLOGY Elapsed Days 11 MOSAIQ RADIATION ONCOLOGY Start Date 10/23/2024 MOSAIQ RADIATION ONCOLOGY Last Date 11/03/2024 MOSAIQ RADIATION ONCOLOGY Prescribed Number of Fractions 28 MOSAIQ RADIATION ONCOLOGY 11/03/2024 9:07 AM EDT Physician Radiation Oncology RADIATION ONCJENNY GY ORDERABLES Final Result MOSAIQ RADIATION ONCOLOGY * Rad Onc Msq Treatment Summary (10/31/2024 9:05 AM EDT) Treatment Site prostate & nodes MOSAIQ RADIATION ONCOLOGY Course Number 1 MOSAIQ RADIATION ONCOLOGY Prescribed Fractional Dose 250 cGray MOSAIQ RADIATION ONCOLOGY Prescribed Total Dose 7,000 cGray MOSAIQ RADIATION ONCOLOGY Actual Fractions Delivered 7 MOSAIQ RADIATION ONCOLOGY Actual Session Delivered Dose 250 cGray MOSAIQ RADIATION ONCOLOGY Actual Total Dose 1,750 cGray MOSAIQ RADIATION ONCOLOGY Prescribed Technique 3 ARC VMAT MOSAIQ RADIATION ONCOLOGY Elapsed Days 8 MOSAIQ RADIATION ONCOLOGY Start Date 10/23/2024 MOSAIQ RADIATION ONCOLOGY Last Date 10/31/2024 MOSAIQ RADIATION ONCOLOGY Prescribed Number of Fractions 28 MOSAIQ RADIATION ONCOLOGY 10/31/2024 9:05 AM EDT Physician Radiation Oncology RADIATION ONCOLO GY ORDERABLES Final Result MOSAIQ RADIATION ONCOLOGY * Rad Onc Msq Treatment Summary (10/30/2024 9:07 AM EDT) Treatment Site prostate & nodes MOSAIQ RADIATION ONCOLOGY Course Number 1 MOSAIQ RADIATION ONCOLOGY Prescribed Fractional Dose 250 cGray MOSAIQ RADIATION ONCOLOGY Prescribed Total Dose 7,000 cGray MOSAIQ RADIATION ONCOLOGY Actual Fractions Delivered 6 MOSAIQ RADIATION ONCOLOGY Actual Session Delivered Dose 250 cGray MOSAIQ RADIATION ONCOLOGY Actual Total Dose 1,500 cGray MOSAIQ RADIATION ONCOLOGY Prescribed Technique 3 ARC VMAT MOSAIQ RADIATION ONCOLOGY Elapsed Days 7 MOSAIQ RADIATION ONCOLOGY Start Date 10/23/2024 MOSAIQ RADIATION ONCOLOGY Last Date 10/30/2024 MOSAIQ RADIATION ONCOLOGY Prescribed Number of Fractions 28 MOSAIQ RADIATION ONCOLOGY 10/30/2024 9:07 AM EDT Physician Radiation Oncology RADIATION ONCOLO GY ORDERABLES Final Result MOSAIQ RADIATION ONCOLOGY * Rad Onc Msq Treatment Summary (10/29/2024 9:11 AM EDT) Treatment Site prostate & nodes MOSAIQ RADIATION ONCOLOGY Course Number 1 MOSAIQ RADIATION ONCOLOGY Prescribed Fractional Dose 250 cGray MOSAIQ RADIATION ONCOLOGY Prescribed Total Dose 7,000 cGray MOSAIQ RADIATION ONCOLOGY Actual Fractions Delivered 5 MOSAIQ RADIATION ONCOLOGY Actual Session Delivered Dose 250 cGray MOSAIQ RADIATION ONCOLOGY Actual Total Dose 1,250 cGray MOSAIQ RADIATION ONCOLOGY Prescribed Technique 3 ARC VMAT MOSAIQ RADIATION ONCOLOGY Elapsed Days 6 MOSAIQ RADIATION ONCOLOGY Start Date 10/23/2024 MOSAIQ RADIATION ONCOLOGY Last Date 10/29/2024 MOSAIQ RADIATION ONCOLOGY Prescribed Number of Fractions 28 MOSAIQ RADIATION ONCOLOGY 10/29/2024 9:11 AM EDT Physician Radiation Oncology RADIATION ONCOLO GY ORDERABLES Final Result MOSAIQ RADIATION ONCOLOGY * Rad Onc Msq Treatment Summary (10/28/2024 9:09 AM EDT) Treatment Site prostate & nodes MOSAIQ RADIATION ONCOLOGY Course Number 1 MOSAIQ RADIATION ONCOLOGY Prescribed Fractional Dose 250 cGray MOSAIQ RADIATION ONCOLOGY Prescribed Total Dose 7,000 cGray MOSAIQ RADIATION ONCOLOGY Actual Fractions Delivered 4 MOSAIQ RADIATION ONCOLOGY Actual Session Delivered Dose 250 cGray MOSAIQ RADIATION ONCOLOGY Actual Total Dose 1,000 cGray MOSAIQ RADIATION ONCOLOGY Prescribed Technique 3 ARC VMAT MOSAIQ RADIATION ONCOLOGY Elapsed Days 5 MOSAIQ RADIATION ONCOLOGY Start Date 10/23/2024 MOSAIQ RADIATION ONCOLOGY Last Date 10/28/2024 MOSAIQ RADIATION ONCOLOGY Prescribed Number of Fractions 28 MOSAIQ RADIATION ONCOLOGY 10/28/2024 9:09 AM EDT Physician Radiation Oncology RADIATION ONCJENNY GY ORDERABLES Final Result MOSAIQ RADIATION ONCOLOGY * Rad Onc Msq Treatment Summary (10/27/2024 9:06 AM EDT) Treatment Site prostate & nodes MOSAIQ RADIATION ONCOLOGY Course Number 1 MOSAIQ RADIATION ONCOLOGY Prescribed Fractional Dose 250 cGray MOSAIQ RADIATION ONCOLOGY Prescribed Total Dose 7,000 cGray MOSAIQ RADIATION ONCOLOGY Actual Fractions Delivered 3 MOSAIQ RADIATION ONCOLOGY Actual Session Delivered Dose 250 cGray MOSAIQ RADIATION ONCOLOGY Actual Total Dose 750 cGray MOSAIQ RADIATION ONCOLOGY Prescribed Technique 3 ARC VMAT MOSAIQ RADIATION ONCOLOGY Elapsed Days 4 MOSAIQ RADIATION ONCOLOGY Start Date 10/23/2024 MOSAIQ RADIATION ONCOLOGY Last Date 10/27/2024 MOSAIQ RADIATION ONCOLOGY Prescribed Number of Fractions 28 MOSAIQ RADIATION ONCOLOGY 10/27/2024 9:06 AM EDT Physician Radiation Oncology RADIATION ONCJENNY GY ORDERABLES Final Result MOSAIQ RADIATION ONCOLOGY * Rad Onc Msq Treatment Summary (10/24/2024 9:08 AM EDT) Treatment Site prostate & nodes MOSAIQ RADIATION ONCOLOGY Course Number 1 MOSAIQ RADIATION ONCOLOGY Prescribed Fractional Dose 250 cGray MOSAIQ RADIATION ONCOLOGY Prescribed Total Dose 7,000 cGray MOSAIQ RADIATION ONCOLOGY Actual Fractions Delivered 2 MOSAIQ RADIATION ONCOLOGY Actual Session Delivered Dose 250 cGray MOSAIQ RADIATION ONCOLOGY Actual Total Dose 500 cGray MOSAIQ RADIATION ONCOLOGY Prescribed Technique 3 ARC VMAT MOSAIQ RADIATION ONCOLOGY Elapsed Days 1 MOSAIQ RADIATION ONCOLOGY Start Date 10/23/2024 MOSAIQ RADIATION ONCOLOGY Last Date 10/24/2024 MOSAIQ RADIATION ONCOLOGY Prescribed Number of Fractions 28 MOSAIQ RADIATION ONCOLOGY 10/24/2024 9:08 AM EDT Physician Radiation Oncology RADIATION ONCOLO GY ORDERABLES Final Result MOSAIQ RADIATION ONCOLOGY * Rad Onc Msq Treatment Summary (10/23/2024 11:45 AM EDT) Treatment Site prostate & nodes MOSAIQ RADIATION ONCOLOGY Course Number 1 MOSAIQ RADIATION ONCOLOGY Prescribed Fractional Dose 250 cGray MOSAIQ RADIATION ONCOLOGY Prescribed Total Dose 7,000 cGray MOSAIQ RADIATION ONCOLOGY Actual Fractions Delivered 1 MOSAIQ RADIATION ONCOLOGY Actual Session Delivered Dose 250 cGray MOSAIQ RADIATION ONCOLOGY Actual Total Dose 250 cGray MOSAIQ RADIATION ONCOLOGY Prescribed Technique 3 ARC VMAT MOSAIQ RADIATION ONCOLOGY Elapsed Days 0 MOSAIQ RADIATION ONCOLOGY Start Date 10/23/2024 MOSAIQ RADIATION ONCOLOGY Last Date 10/23/2024 MOSAIQ RADIATION ONCOLOGY Prescribed Number of Fractions 28 MOSAIQ RADIATION ONCOLOGY 10/23/2024 11:4 5 AM EDT Physician Radiation Oncology RADIATION ONCOLO GY ORDERABLES Final Result Performing Organization Address City/[facility]/ZIP Co de Phone Number MOSAIQ RADIATION ONCOLOGY * (ABNORMAL) Basic metabolic panel (07/01/2024 8:04 AM EDT) Sodium 141 133 - 145 mmol/L LAB CHEMISTRY METHOD 07/01/2024 9:15 AM EDT [facility] Potassium 4.8 3.5 - 5.5 mmol/L LAB CHEMISTRY METHOD 07/01/2024 9:15 AM EDT [facility] Chloride 105 96 - 110 mmol/L LAB [facility] CO[facility] 25 21 - 32 mmol/L LAB CHEMISTRY METHOD 07/01/2024 9:15 AM [facility] Anion Gap 11 3 - 11 LAB CHEMISTRY METHOD 07/01/2024 9:15 AM [facility] Glucose 137(H) 70 - 100 mg/dL LAB CHEMISTRY METHOD 07/01/2024 9:15 AM [facility] BUN 23 5 - 25 mg/dL LAB CHEMISTRY METHOD 07/01/2024 9:15 AM [facility] Creatinine 1.09 0.70 - 1.30 mg/dL LAB CHEMISTRY METHOD 07/01/2024 9:15 AM [facility] eGFR 71 >=60 mL/min/1. 73m2 LAB CHEMISTRY METHOD 07/01/2024 9:15 AM [facility] Comment:Calculation based on the Chronic Kidney Disease Epidemiology Collaboration (CKD-EPI) equation refit without adjustment for race. BUN/Creatinine Ratio 21.1 LAB CHEMISTRY METHOD 07/01/2024 9:15 AM [facility] Calcium 9.0 8.5 - 10.5 mg/dL LAB CHEMISTRY METHOD 07/01/2024 9:15 AM [facility] Blood Venous blood specimen / Unknown Venipuncture / Unknown 07/01/2024 8:04 AM EDT 07/01/2024 8:26 AM EDT us Herve Desir MD LAB BLOOD ORDERABLES Final Resul t [facility] [address] [place] [address], from Last 3 Months or Most Recently Relevant to Health Maintenance Insurance MEDICARE [facility] Advance Directives * Full Code - Default (Latest Code Status on File) Date Activated Date Inactivated Comments 07/01/2024 6:08 PM 07/02/2024 10:51 AM This is ord er is used when code status has not been discussed with the patient, or code status is otherwise unknown/unconfirmed To update the patient's code status, place a code status order. Do not modify or discontinue any currently active code status orders. Care Teams Salvage Winder And Inspector Relationship Specialty Start Date End Date Allyn Anderson MD [address] [place] [address] PCP - General Internal Medicine 05/01/24
--- OUTSIDE RECORDS SUMMARY | 2025-01-01 17:31 | XMS_ITS | Encounter Summary ---
Author Organization [facility] Address [address] [place] [address] Care Team Providers Care Fruit Vendor Name Role Phone Allyn Anderson MD Primary Care Provider +1- [phone] Encounter Details Date Type Department Care Team (Late st Contact Info) Description 11/23/2023 Scanned Document [facility] Urologic Surgery [address] [place] [address] Allyn Anderson MD [address] [place] [address] Social History Tobacco Use Types Packs/Day Years [...] on filedocumented in this encounter Care Teams Fruit Vendor Relationship Specialty Start Date End Date Allyn Anderson MD [address] [place] [address] PCP - General Internal Medicine 11/21/23 documented as of this encounter
--- OUTSIDE RECORDS SUMMARY | 2025-01-01 17:31 | XMS_ITS | Clinical Summary ---
Author Organization [facility] Address [address] [place] [address] Care Team Providers Care Zookeeper Name Role Phone Allyn Anderson MD Primary Care Provider +1- [phone] Allergies Active Allergy Reactions Criticality Noted Date [...] Health Maintenance Due Date Last Done Comments Advance Care Planning 1950 Hepatitis C Virus Screening 1950 DTaP/Tdap/Td Vaccines (1 - Tdap) 1968 Colonoscopy 1994 Pneumococcal Vaccines 50+ (1 of 1 - PCV) 12/16/1999 Zoster (Shingles) Vaccine (1 of 2) 12/16/1999 Influenza Vaccine 09/19/2024 10/26/2023, , 11/22/2021, Additional history exists COVID-19 Vaccine (2024- season) 2024 12/18/2022, 01/10/2021, 06/10/2020, Additional history exists RSV Vaccine 50 years and older and Patients (1 - 1-dose 75+ series) 2024 Hepatitis B Vaccines Aged Out No long er eligible based on patient's age to complete this topic Insurance [facility] Care Teams Zookeeper Relationship Specialty Start Date End Date Allyn Anderson MD [address] [place] [address] PCP - General Internal Medicine 11/21/23
--- OUTSIDE RECORDS SUMMARY | 2025-01-01 17:31 | XMS_ITS | Encounter Summary ---
Author Organization [facility] [place] [address] Care Team Providers Care Pelota Maker Name Role Phone Allyn Anderson MD Primary Care Provider + [phone] Encounter Details Date Type Department Care Team (Late st Contact Info) Description 03/03/2024 Lab Requisition [facility] - Main Lab [address] [facility] [place] [address] Eryn Watkins MD [address] [place] [address] Elevated prostate specific antigen (PSA) Social History [...] - 03/07/2024 10:05 AM EST Performed at: 01 - [facility] [address] [id number] Countersinker Balance Screw Hole: Sun Bliss MD, Phone: [phone] us Eryn Watkins MD LAB MICROBIOLOGY - GENER AL ORDERABLES Final Result [facility] * Culture fluoroquinolone resistant organism (03/03/2024 12:00 AM EST) Fluoroquinolone Resist GNR Cul Final report 03/07/2024 10:05 AM EST [facility] Swab Rectum structure / Unknown 03/03/2024 03/03/2024 10:26 AM EST Narrative [facility] - 03/07/2024 10:05 AM EST Performed at: - [facility] [address] [id number] Countersinker Balance Screw Hole: Sun Bliss MD, Phone: [phone] Eryn Watkins MD LAB MICROBIOLOGY - GENER AL ORDERABLES Final Result [facility] documented in this encounter Visit Diagnoses Diagnosis Elevated prostate specific antigen (PSA) documented in this encounter Care Teams Pelota Maker Relationship Specialty Start Date End Date Allyn Anderson MD [address] [place] [address] PCP - General Internal Medicine 05/01/24 documented as of this encounter
--- OUTSIDE RECORDS SUMMARY | 2025-01-01 17:31 | XMS_ITS | Encounter Summary ---
Author Organization [facility] Address [address] [place] [id number] Care Team Providers Care Institute Director Name Role Phone Allyn Anderson MD Primary Care Provider +1- [phone] Encounter Details Date Type Department Care Team (Late st Contact Info) Description 11/23/2023 Scanned Document [facility] Urologic Surgery [address] [place] [address] Allyn Anderson MD [address] [place] [address] Social History Tobacco Use Types Packs/Day Years [...] on filedocumented in this encounter Care Teams Institute Director Relationship Specialty Start Date End Date Allyn Anderson MD [address] [place] [address] PCP - General Internal Medicine 11/21/23 documented as of this encounter
--- OUTSIDE RECORDS SUMMARY | 2025-01-01 17:31 | XMS_ITS | Encounter Summary ---
Author Organization [facility] Address [address] [place] [address] Care Team Providers Care Stocking And Box Shop Supervisor Name Role Phone Allyn Anderson MD Primary Care Provider + [phone] Encounter Details Date Type Department Care Team (Latest Contact Info) Description 05/09/2024 Lab Requisition [facility] - Main Lab [address] [facility] [place] [address] Herve Desir MD [address] [phone] Other abnormal findings on microbiological examination of [...] no further workup 05/10/2024 2:[address] [facility] Urine Urine specimen obtained by clean catch procedure / Unknown 05/09/2024 11:25 AM EDT 05/09/2024 5:52 PM EDT us Herve Desir MD LAB MICROBIOLOGY - GENERAL ORDER CEE Final Result [facility] [address] [place] [address], documented in this encounter Visit Diagnoses Diagnosis Other abnormal findings on microbiological examination of urine documented in this encounter Care Teams Stocking And Box Shop Supervisor Relationship Specialty Start Date End Date Allyn Anderson MD [address] [place] [address] PCP - General Internal Medicine 05/01/24 documented as of this encounter
--- OUTSIDE RECORDS SUMMARY | 2025-01-01 17:31 | XMS_ITS ---
Author Organization [facility] Address [address] [place] [address] Care Team Providers Care Veterinarian Laboratory Animal Care Name Role Phone Allyn Anderson MD Primary Care Provider + [phone] Active Problems Problem Noted Date Diagnosed Date [...] Neck, low back, right knee, left foot Current Treatment and Therapy Plans No current plan information found. Past Treatment and Therapy Plans No past plan information found. Current Radiation Episodes * Radiation Therapy: PelvisOverview* First Treatment Date Latest Treatment Date Treatment Site Technique Goal Episode Provider 10/23/2024 12/02/2024 Pelvis Curative Ally Acosta MD * Linked Problems Treatment Courses* Course 1 10/23/2024 - 12/02/2024 Treatment Sites Treatment Period Fraction Dose Fractions Total Dose prostate & nodes 10/23/2024 - 12/02/2024 250 / 250 cGy 28 / 28 7,000 / 7,000 cGy
--- OUTSIDE RECORDS SUMMARY | 2025-01-01 17:31 | XMS_ITS | Encounter Summary ---
Author Organization Formerly [facility] Address [address] [place] [address] Care Team Providers Care Banking Services Officer Name Role Phone Allyn Anderson MD Primary Care Provider +1- [phone] Encounter Details Date Type Department Care Team (Late st Contact Info) Description 02/14/2024 Scanned Document [facility] UROLOGY SCAN Urology, Scan Social History Tobacco [...] on filedocumented in this encounter Care Teams Banking Services Officer Relationship Specialty Start Date End Date Allyn Anderson MD [address] [place], [place] [id number] PCP - General Internal Medicine 11/21/23 documented as of this encounter
--- OUTSIDE RECORDS SUMMARY | 2025-01-01 17:31 | XMS_ITS | Clinical Summary ---
Author Organization [facility] Address [address] [place] [address] Care Team Providers Care Transitions Manager Name Role Phone Claudio Lea MD Primary Care Provider [phone]- [phone] Allergies Active Allergy Reactions Criticality Noted Date [...] Group Subscriber ID Effective Dates Phone Address [facility] [id number] [address] [facility] [address] [place] [address] HMO Care Teams Transitions Manager Relationship Specialty Start Date End Date Claudio Lea MD [address] [place] [phone] PCP - General Internal Medicine 09/03/19
--- OUTSIDE RECORDS SUMMARY | 2025-01-01 17:31 | XMS_ITS | Encounter Summary ---
Author Organization [facility] Address [address] [place] [id number] Care Team Providers Care Ict Analyst Name Role Phone Allyn Anderson MD Primary Care Provider [phone]- [phone] Encounter Details Date Type Department Care Team (Late st Contact Info) Description 11/23/2023 Scanned Document [facility] Urologic Surgery [address] [place] [address] Allyn Anderson MD [address] [place] [address] Social History Tobacco Use Types Packs/Day Years [...] on filedocumented in this encounter Care Teams Ict Analyst Relationship Specialty Start Date End Date Allyn Anderson MD [address] [place] [address] PCP - General Internal Medicine 11/21/23 documented as of this encounter
== END 2025-01-01 14:09 | disposition home or self-care (01) ==
LOC: HO.BBR 14:08
PROVIDERS: Visit Provider Hospitalist
DX: Z13.89 Encounter for screening for other disorder (principal)